=== PATIENT | female | born 1950 | race Caucasian/White ===

== ENCOUNTER → 2020-12-06 17:11 | Outpatient (CLI) | payer MEDICARE, SELFPAY ==
[2020-12-06 18:25] LABS: Basophils # 0.1 K/mm3 (0-0.2); Basophils % 1.1 % (0.1-2.0); Eosinophils # 0.2 K/mm3 (0.0-0.4); Eosinophils % 2.6 % (0.1-12.0); Hematocrit 43.9 % (37.0-47.0); Hemoglobin 13.9 g/dL (12.2-16.2); Lymphocytes # 2.2 K/mm3 (0.7-4.5); Lymphocytes % 26.8 % (10-50); Mean Corpuscular HGB Conc 31.7 g/dL (31.8-35.4); Mean Corpuscular Hemoglobin 31.7 pg (27.0-31.2); Mean Corpuscular Volume 99.8 fl (81-99); Mean Platelet Volume 9.7 fl (7.4-10.4); Monocytes # 0.5 K/mm3 (0.1-1.0); Monocytes % 6.3 % (1.7-9.3); Neutrophils # 5.3 K/mm3 (1.8-7.8); Neutrophils % 63.2 % (37.0-80.0); Platelet Count 492 K/mm3 (142-424); Red Blood Count 4.39 M/mm3 (4.20-5.40); Red Cell Distribution Width 13.9 % (11.5-17.5); White Blood Count 8.4 K/mm3 (4.8-10.8)
[2020-12-06 18:34] LABS: Alanine Aminotransferase 22 U/L (12-78); Albumin Level 4.3 g/dl (3.5-5.0); Albumin/Globulin Ratio 1.3 (1.1-1.8); Alkaline Phosphatase 152 U/L (38-126); Anion Gap 15.8 mEq/L (5-15); Aspartate Amino Transferase 40 U/L (14-36); Bilirubin,Total 0.7 mg/dl (0.2-1.3); Blood Urea Nitrogen 13 mg/dl (7-17); Calcium 10.1 mg/dl (8.4-10.2); Carbon Dioxide 27 mmol/L (22.0-30.0); Chloride 104 mmol/L (98-107); Chol/HDL Ratio 3.3 (1-3.5); Cholesterol 213 mg/dl (140-200); Estimated Glomerular Filt Rate 71 ml/min (>60); GFR (African American) 85 ML/MIN (>60); Globulin 3.2 g/dL (1.3-3.2); Glucose 99 mg/dl (74-100); HDL Cholesterol 65 mg/dl (40-60); Potassium 4.8 mmoL/L (3.5-5.1); Sodium 142 mmol/L (136-145); Total Protein,Serum 7.5 g/dl (6.3-8.2); Triglycerides 102 mg/dl (30-150); VLDL Cholesterol 20 mg/dL (0-40)
[2020-12-06 18:45] LABS: Direct LDL Cholesterol 114.01 mg/dL (100-129)
[2020-12-06 18:50] LABS: Free T4 (Free Thyroxine) 0.98 ng/dl (0.78-2.19)
[2020-12-06 18:51] LABS: 25-OH Vitamin D, Total 58.8 ng/mL (30-100)
[2020-12-06 19:07] LABS: Thyroid Stimulating Hormone 0.85 uIU/mL (0.465-4.68)
[2020-12-06 19:25] LABS: Vitamin B12 243 pg/mL (239-931)
[2020-12-06 19:29] LABS: Erythrocyte Sedimentation Rate 29 mm/hr (0-30)
== END ==
PROVIDERS: Visit Provider Emergency Medicine
DX: R53.83 Other fatigue (principal); E55.9 Vitamin D deficiency, unspecified; E78.5 Hyperlipidemia, unspecified
CPT/HCPCS: 80053; 80061; 82306; 82607; 84439; 84443; 85025; 85651

== ENCOUNTER → 2020-12-15 13:06 | Outpatient (CLI) | payer MEDICARE, SELFPAY ==
[2020-12-15 13:27] LABS: Basophils # 0.1 K/mm3 (0-0.2); Basophils % 1.2 % (0.1-2.0); Eosinophils # 0.2 K/mm3 (0.0-0.4); Eosinophils % 3.3 % (0.1-12.0); Hematocrit 41.3 % (37.0-47.0); Hemoglobin 13.8 g/dL (12.2-16.2); Lymphocytes # 2.4 K/mm3 (0.7-4.5); Lymphocytes % 34.4 % (10-50); Mean Corpuscular HGB Conc 33.4 g/dL (31.8-35.4); Mean Corpuscular Volume 98.8 fl (81-99); Mean Platelet Volume 8.7 fl (7.4-10.4); Monocytes # 0.4 K/mm3 (0.1-1.0); Monocytes % 6.1 % (1.7-9.3); Neutrophils # 3.8 K/mm3 (1.8-7.8); Platelet Count 469 K/mm3 (142-424); Red Blood Count 4.18 M/mm3 (4.20-5.40); Red Cell Distribution Width 13.6 % (11.5-17.5); White Blood Count 6.9 K/mm3 (4.8-10.8)
[2020-12-15 15:23] LABS: Vitamin B12 249 pg/mL (239-931)
[2020-12-15 15:24] LABS: Folate 7.82 ng/mL
[2020-12-16 05:09] LABS: Hep A Ab, IgM Positive (Negative); Hepatitis B Core Antibody IgM Negative (Negative); Hepatitis B Surface Antigen Negative (Negative); Hepatitis C Antibody <0.1 s/co ratio (0.0-0.9)
[2020-12-17 13:09] LABS: Peripheral Smear Review Scanned Result
== END ==
PROVIDERS: Visit Provider Emergency Medicine
DX: R79.9 Abnormal finding of blood chemistry, unspecified (principal); R53.83 Other fatigue
CPT/HCPCS: 36415; 80074; 82607; 82746; 85025

== ENCOUNTER → 2021-02-14 10:34 | Outpatient (CLI) | payer MEDICARE, SELFPAY ==
--- NOTE | 2021-02-14 10:34 | NM_ITS ---
APPROVED REPORT Exam: Nuclear Stress Test Indication: Chest pain, SOB, Syncope, Fatigue, HTN Patient Location: Outpatient [place] Tech:SHANELL Martinez, RT (R)(N) Ht: 5 ft 7 in Wt: 272 lbs Bra Size: DDD BSA: 2.30 m2 BMI: 42.5 History: Chest pain, SOB, Syncope, Fatigue, HTN Procedure: Stress test was not performed due to patient being in Rapid Afib. Cardiac Stress and Resting SPECT Images: Cardiac Stress and Resting SPECT images were obtained using technetium 99m Myoview mCi stress and 10.99 mCi at rest. Only resting images were performed. Stress portion was not completed due to patient being in Rapid Afib. Conclusion: incomplete test, Electronically signed by : Bernard Whatley MD 02/14/2021 19:15:31
--- NOTE | 2021-02-14 12:01 | CA_ITS ---
APPROVED REPORT EXAM: Comprehensive 2D, Doppler, and color-flow Echocardiogram Senior Manager Creative Services: Odette Arana RDCS Ht: 5 ft 7 in Wt: 272lbs BSA: 2.30 BP: 140/82 mmHg Indications: SOA,SVT,?GEORGES,TDS BODY HABITUS M-Mode Dimensions RVDd 2.46 cm (0.9-2.6) LA Diam 5.15 cm (1.9-4.0) LVDd 6.23 cm (3.5-5.7) Ao Diam 3.07 cm (2.0-3.7) LVDs 5.62 cm (3.5-5.7) IVSd 0.87 cm (0.6-1.1) PWd 0.85 cm (0.6-1.1) EF (Teich) 21.00% FS 9.80% EDV (Teich) 196.10 mL ESV (Teich) 154.90 mL Tricuspid Valve TR P. Velocity 367.00 cm/s Left Ventricle Left atrium is moderately enlarged, left ventricle is mildly dilated, severe reduced left ventricular systolic function, visually estimated ejection fraction 25 to 30%, left ventricle is globally hypokinetic, there is abnormal septal motion, there is echodensity seen in the left ventricular apex this likely represents a left ventricular apical thrombus. Repeat study with Definity contrast is recommended to confirm this finding. Diastolic parameters are inconclusive. Right Ventricle Right atrium and right ventricle are normal size and contractility. Aortic Valve Aortic valve is minimally thickened and fibrosed, there is no aortic stenosis or aortic insufficiency. Mitral Valve Mitral valve leaflets are minimally thickened, there is moderate mitral regurgitation. Tricuspid Valve Tricuspid valve grossly normal, there is mild tricuspid regurgitation, tricuspid regurgitation jet velocity is inadequate for calculation of the right ventricular systolic pressure. Pulmonic Valve Pulmonic valve is poorly visualized. Great Vessels Aortic root is normal size. Inferior vena cava is dilated without significant inspiratory collapse. Pericardium No significant pericardial effusion noted. Conclusion 1. Moderately enlarged left atrium, dilated left ventricle, severely reduced left ventricular systolic function, visually estimated ejection fraction 25 to 30%, left ventricle is globally hypokinetic there is apical mural thrombus present, repeat study with Definity contrast is recommended to confirm this finding. 2. Moderate mitral and mild tricuspid regurgitation. 3. No significant pericardial effusion noted 4. Inferior vena cava is dilated without significant inspiratory collapse. Electronically signed by : Bernard Whatley MD 02/14/2021 21:18:13
--- NOTE | 2021-02-14 13:20 | HMH.ITSHM ---
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 []VITAMIN D3 DULOXETINE BUPROPION CARVEDILOL AMLODIPINE LOSARTAN FAMOTIDINE AMITRIPTYLINE
== END ==
PROVIDERS: PCP Emergency Medicine; Visit Provider Emergency Medicine
DX: R06.02 Shortness of breath (principal)
CPT/HCPCS: 78451; 93306; A9502

== ENCOUNTER 2021-02-14 12:57 | Inpatient (IN) | payer MEDICARE, SELFPAY ==
[2021-02-14] VITALS (18 sets, daily range): BP systolic 98–171; BP diastolic 68–134; PULSE 77–149; RESP 18–24; TEMP 36.8–37.4; O2SAT 89–97; BMI 42.5
--- NOTE | 2021-02-14 12:37 | ECG_ITS ---
APPROVED REPORT Exam: Resting ECG HR:144 bpm ECG Measurements Heart Rate 144 AXES QRSd 156 QRS 90 QT 360 T -49 QTc 557 Conclusion Atrial fibrillation with rapid ventricular response with premature ventricular or aberrantly conducted complexes Rightward axis Nonspecific intraventricular block Abnormal ECG Electronically signed by : Anam Martinez MD 02/15/2021 20:25:34
--- NOTE | 2021-02-14 13:03 | XR_ITS ---
PROCEDURE: XR CHEST PORTABLE CLINICAL HISTORY: cough COMPARISON: No exams were available for comparison FINDINGS: There is mild cardiomegaly. Pulmonary vessels do not appear engorged. Prominent bronchovascular markings. There are low lung volumes which could in part contribute to this finding. There are no previous exams available for comparison. No lobar consolidation or collapse is evident. The distal aspect of the right clavicle is missing and may be due to surgical defect. No acute bony abnormalities. IMPRESSION: Cardiomegaly with low lung volumes and prominence of the bronchovascular markings nonspecific in part could be related to the low lung volumes. Interstitial pneumonitis is also consideration. Dictated by: Surya Fish MD 02/14/2021 13:57 Surya Fish MD in [place] 02/14/2021 13:57
--- NOTE | 2021-02-14 13:17 | HMH.EDSOB ---
ED Disposition Clinical Impression: Atrial fibrillation Qualifiers: Atrial fibrillation type: unspecified Qualified Code(s): I48.91 - Unspecified atrial fibrillation Disposition: Admitted As Inpatient Condition on Discharge: Fair - Critical Care Critical Care Time: No Attestation: On , the high probability of a clinically significant, sudden or life threatening deterioration of the following system(s) required my full and direct attention, intervention and personal management. The time I documented below is in addition to time spent performing reported procedures but includes the following listed in this critical care notation. Medical Decision Making - Medical Records Medical records reviewed: Yes: I reviewed the patient's medical records. - Ramin Inquiry Pt receiving controlled substance: No Vital Signs: 02/14/21 12:58 02/14/21 12:59 02/14/21 13:19 Temperature 99.4 F Temperature Source Oral Pulse Rate 111 H Pulse Rate [Left Radial] 149 H Respiratory Rate 22 21 Blood Pressure 130/88 Blood Pressure [Right Arm] 151/114 H Blood Pressure Mean 102 Blood Pressure Mean [Right Arm] 126 Blood Pressure Source [Right Arm] Automatic Cuff Blood Pressure Position [Right Arm] Sitting 02 Sat by Pulse Oximetry 89 L 93 L Oxygen Delivery Method Room Air Nasal Cannula Oxygen Flow Rate (LPM) 2 02/14/21 13:30 02/14/21 14:00 02/14/21 14:31 Temperature Temperature Source Pulse Rate 132 H 117 H 92 H Pulse Rate [Left Radial] Respiratory Rate 21 20 22 Blood Pressure 117/88 139/84 141/90 H Blood Pressure [Right Arm] Blood Pressure Mean 101 102 97 Blood Pressure Mean [Right Arm] Blood Pressure Source [Right Arm] Blood Pressure Position [Right Arm] 02 Sat by Pulse Oximetry 97 97 95 Oxygen Delivery Method Oxygen Flow Rate (LPM) 02/14/21 15:00 02/14/21 15:59 02/14/21 16:12 Temperature Temperature Source Pulse Rate 99 H 113 H 107 H Pulse Rate [Left Radial] Respiratory Rate 21 24 24 Blood Pressure 142/115 H 161/101 H 171/134 H Blood Pressure [Right Arm] Blood Pressure Mean 122 115 146 Blood Pressure Mean [Right Arm] Blood Pressure Source [Right Arm] Blood Pressure Position [Right Arm] 02 Sat by Pulse Oximetry 95 94 L 94 L Oxygen Delivery Method Oxygen Flow Rate (LPM) 02/14/21 16:31 02/14/21 17:00 02/14/21 17:31 Temperature Temperature Source Pulse Rate 86 103 H Pulse Rate [Left Radial] Respiratory Rate 20 21 23 Blood Pressure 139/76 142/74 H 131/83 Blood Pressure [Right Arm] Blood Pressure Mean 97 96 94 Blood Pressure Mean [Right Arm] Blood Pressure Source [Right Arm] Blood Pressure Position [Right Arm] 02 Sat by Pulse Oximetry 94 L 93 L Oxygen Delivery Method Oxygen Flow Rate (LPM) 02/14/21 18:00 02/14/21 18:30 02/14/21 18:48 Temperature 99.4 F Temperature Source Pulse Rate 86 Pulse Rate [Left Radial] Respiratory Rate 22 23 23 Blood Pressure 144/82 H 153/97 H 153/97 H Blood Pressure [Right Arm] Blood Pressure Mean 102 112 Blood Pressure Mean [Right Arm] Blood Pressure Source [Right Arm] Blood Pressure Position [Right Arm] 02 Sat by Pulse Oximetry Oxygen Delivery Method Nasal Cannula Oxygen Flow Rate (LPM) 3 - Lab Data Lab Results 02/14/21 12:58: SARS-CoV-2 (PCR) Not detected, Influenza A Untype (PCR) Not detected, Influenza Type B (PCR) Not detected 02/14/21 13:27: WBC 8.2, RBC 4.23, Hgb 13.3, Hct 39.5, MCV 93.6, MCH 31.5 H, MCHC 33.7, RDW 13.8, Plt Count 473 H, MPV 7.6, Neut % (Auto) 61.2, Lymph % (Auto) 29.0, Dickens % (Auto) 7.0, Eos % (Auto) 1.9, Baso % (Auto) 1.0, Neut # (Auto) 5.0, Lymph # (Auto) 2.4, Dickens # (Auto) 0.6, Eos # (Auto) 0.2, Baso # (Auto) 0.1 02/14/21 13:27: PT 11.1, INR 0.98, APTT 26.8 02/14/21 13:27: Sodium 140, Potassium 4.1, Chloride 108 H, Carbon Dioxide 21 L, Anion Gap 15.1 H, BUN 13, Creatinine 0.80, Estimated Creat Clear 49, Estimated
[2021-02-14 13:24] LABS: Coronavirus 19, PCR Not Detected (NotDetected); Influenza A, PCR Not Detected (NotDetected); Influenza B, PCR Not Detected (NotDetected)
[2021-02-14 13:48] LABS: Chloride 108 mmol/L (98-107); Potassium 4.1 mmoL/L (3.5-5.1); Sodium 140 mmol/L (136-145)
[2021-02-14 13:50] LABS: Blood Urea Nitrogen 13 mg/dl (7-17); Creatinine Clearance Estimated 49 mL/min (50-200); Estimated Glomerular Filt Rate 71 ml/min (>60); GFR (African American) 85 ML/MIN (>60)
[2021-02-14 13:51] LABS: Alanine Aminotransferase 25 U/L (12-78); Albumin Level 4.2 g/dl (3.5-5.0); Albumin/Globulin Ratio 1.4 (1.1-1.8); Alkaline Phosphatase 165 U/L (38-126); Anion Gap 15.1 mEq/L (5-15); Aspartate Amino Transferase 41 U/L (14-36); Bilirubin,Total 0.9 mg/dl (0.2-1.3); Calcium 9.9 mg/dl (8.4-10.2); Carbon Dioxide 21 mmol/L (22.0-30.0); Glucose 107 mg/dl (74-100); Total Protein,Serum 7.2 g/dl (6.3-8.2)
[2021-02-14 13:54] LABS: Basophils # 0.1 K/mm3 (0-0.2); Eosinophils # 0.2 K/mm3 (0.0-0.4); Eosinophils % 1.9 % (0.1-12.0); Hematocrit 39.5 % (37.0-47.0); Hemoglobin 13.3 g/dL (12.2-16.2); Lymphocytes # 2.4 K/mm3 (0.7-4.5); Mean Corpuscular HGB Conc 33.7 g/dL (31.8-35.4); Mean Corpuscular Hemoglobin 31.5 pg (27.0-31.2); Mean Corpuscular Volume 93.6 fl (81-99); Mean Platelet Volume 7.6 fl (7.4-10.4); Monocytes # 0.6 K/mm3 (0.1-1.0); Neutrophils % 61.2 % (37.0-80.0); Platelet Count 473 K/mm3 (142-424); Red Blood Count 4.23 M/mm3 (4.20-5.40); Red Cell Distribution Width 13.8 % (11.5-17.5); White Blood Count 8.2 K/mm3 (4.8-10.8)
[2021-02-14 13:59] LABS: Activated Partial Thrombo Time 26.8 seconds (22.8-30.6); INR 0.98 (0.9-1.1); NT Pro Brain Natriuretic Pep. 1340 pg/mL (0-125); Prothrombin Time 11.1 seconds (10.1-12.5)
[2021-02-14 14:09] LABS: Troponin I < 0.01 ng/ml (0.00-0.034)
--- NOTE | 2021-02-14 14:41 | CT_ITS ---
PROCEDURE INFORMATION: Exam: CTA Chest With Contrast Exam date and time: 02/14/2021 2:41 PM Age: 70 years old Clinical indication: Shortness of breath; Additional info: Short of breath TECHNIQUE: Imaging protocol: Computed tomographic angiography of the chest with contrast. 3D rendering (Not supervised by radiologist): MIP and/or 3D reconstructed images were created by the technologist. Radiation optimization: All CT scans at this facility use at least one of these dose optimization techniques: automated exposure control; mA and/or kV adjustment per patient size (includes targeted exams where dose is matched to clinical indication); or iterative reconstruction. Contrast material: ISOVUE 370; Contrast volume: 70 ml; Contrast route: INTRAVENOUS (IV); COMPARISON: CR XR CHEST PORTABLE 02/14/2021 1:13 PM FINDINGS: Pulmonary arteries: No evidence of pulmonary embolus to the segmental level. Aorta: Unremarkable. No aortic aneurysm. No aortic dissection. Lungs: Bilateral dependent atelectasis noted. Some subtle scattered tree-in-bud type and nodular opacities are seen. Interstitial prominence noted. Pleural spaces: Unremarkable. No pneumothorax. No pleural effusion. Heart: Mild cardiac enlargement. Coronary artery calcifications noted. Lymph nodes: Mild mediastinal adenopathy. Liver: Hypoattenuation of the liver probably due to steatosis. Gallbladder and bile ducts: Status post cholecystectomy. Bones/joints: Unremarkable. No acute fracture. Soft tissues: Unremarkable. Other findings: Small bilateral layering effusions. IMPRESSION: 1. No evidence of pulmonary embolus. 2. Tree-in-bud and tiny nodular opacities are worrisome for infection. However, clinical correlation is recommended. 3. Small bilateral effusions and mild mediastinal adenopathy may be related. 4. Mild hepatic steatosis .
[2021-02-14 15:01] LABS: Thyroid Stimulating Hormone 1.13 uIU/mL (0.465-4.68)
--- NOTE | 2021-02-14 15:04 | PC.NURSE ---
pt going to CT
--- NOTE | 2021-02-14 16:11 | PC.NURSE ---
pt to CT
--- NOTE | 2021-02-14 17:52 | PC.NURSE ---
ARISTIDES MARTINEZ speaking with Dr. Martinez who is ribbon weaver for Dr. Sullivan
--- NOTE | 2021-02-14 17:53 | PC.NURSE ---
notified melt house supervisor of admission
[2021-02-14 18:31] LABS: Troponin I < 0.01 ng/ml (0.00-0.034)
--- NOTE | 2021-02-14 18:37 | PC.NURSE ---
Report called to Maria Elena PÉREZ
--- NOTE | 2021-02-14 18:50 | PC.NURSE ---
pt arrived to room 218 from ED via wheelchair. Pt brought a pill set with her home meds. It is locked in the med drawer.
[2021-02-14 20:51] LABS: Troponin I < 0.01 ng/ml (0.00-0.034)
[2021-02-15] VITALS (24 sets, daily range): BP systolic 90–140; BP diastolic 40–92; PULSE 70–116; RESP 16–22; TEMP 36.7–37.1; O2SAT 3–95; BMI 42.7
--- NOTE | 2021-02-15 | IR_ITS ---
APPROVED REPORT Patient Location: Inpatient In Store Marketer: SHANELL Huntley RT (R) PROCEDURES Selective coronary angiogram INDICATION New onset systolic congestive heart failure ejection fraction 20% Informed consent was obtained prior to the procedure. COMPLICATIONS None Estimated Blood Loss: Less than 10 mls TECHNIQUE One percent lidocaine used to anesthetize the right anterior aspect of the wrist. The right radial artery was accessed via the Seldinger technique. A 6 Mongolian sheath was placed in the right radial artery. 2.5 mg of verapamil, 800 mcg of nitroglycerin, 1mg Lidocaine and 5000 U Heparin were given through the arterial sheath. The trap catheter was also used to perform selective coronary angiogram. At the end of the procedure the sheath was removed good hemostasis was achieved using Traclet band, patient was transferred to the postop holding area in stable condition. ANGIOGRAPHIC RESULTS The left main artery Normal The left anterior descending artery Normal The circumflex artery Dominant normal The right coronary artery Vestigial normal The BAILEY ventriculogram reveals Not performed today apical thrombus The left ventricular end-diastolic pressure Not measured due to apical thrombus IMPRESSION Normal coronary arteries Known severe systolic dysfunction based on echocardiogram with presence of apical thrombus PLAN 1. Patient should be fully anticoagulated and then placed on Coumadin with a goal INR between 2.5 and 3.5 2. Standard therapy for systolic heart failure 3. Placement of LifeVest Electronically signed by : Tony Easton MD 02/15/2021 13:41:50
--- NOTE | 2021-02-15 00:20 | PC.NURSE ---
HR sustaining in the 60-70s, afib. Michelle gave order to stop cardizem gtt and give 20mg PO cardizem.
--- NOTE | 2021-02-15 07:09 | P.CONPHA_ITS ---
[facility] Pharmacy VTE Monitoring - Patient Demographics Admission date: 02/14/21 Report Date: 02/15/21 Time: 07:09 Allergies/Adverse Reactions: Patient Allergies Sulfa (Sulfonamide Antibiotics) Allergy (Severe, Verified 02/07/21 10:51) blisters Height: 1.7 m Weight: 123.377 kg Patient Problems: Current Active Problems Atrial fibrillation (Acute) - VTE Risk Labs: VTE Related Lab Results Hgb 13.3 g/dL (12.2-16.2) 02/14/21 13:27 Hct 39.5 % (37.0-47.0) 02/14/21 13:27 Plt Count 473 K/mm3 (142-424) H 02/14/21 13:27 PT 11.1 seconds (10.1-12.5) 02/14/21 13:27 INR 0.98 (0.9-1.1) 02/14/21 13:27 APTT 26.8 seconds (22.8-30.6) 02/14/21 13:27 BUN 13 mg/dl (7-17) 02/14/21 13:27 Creatinine 0.80 mg/dl (0.52-1.04) 02/14/21 13:27 Estimated Creat Clear 49 mL/min (50-200) 02/14/21 13:27 VTE Score: 3 VTE Risk Level: Low Risk - Prophylaxis VTE Prophylaxis Ordered?: Yes Types of VTE Prophylaxis: TEDS Knee High, Pharmacological Location of Applied Device: Bilateral Lower Extremeties Pharmacologic Type: Enoxaparin
[2021-02-15 07:26] LABS: Basophils # 0.1 K/mm3 (0-0.2); Basophils % 0.8 % (0.1-2.0); Chloride 106 mmol/L (98-107); Eosinophils # 0.2 K/mm3 (0.0-0.4); Eosinophils % 2.7 % (0.1-12.0); Hematocrit 36.8 % (37.0-47.0); Hemoglobin 12.6 g/dL (12.2-16.2); Lymphocytes # 2.2 K/mm3 (0.7-4.5); Lymphocytes % 28.6 % (10-50); Mean Corpuscular HGB Conc 34.2 g/dL (31.8-35.4); Mean Corpuscular Hemoglobin 31.9 pg (27.0-31.2); Mean Corpuscular Volume 93.3 fl (81-99); Mean Platelet Volume 8.1 fl (7.4-10.4); Monocytes # 0.6 K/mm3 (0.1-1.0); Monocytes % 8.3 % (1.7-9.3); Neutrophils # 4.5 K/mm3 (1.8-7.8); Neutrophils % 59.6 % (37.0-80.0); Platelet Count 446 K/mm3 (142-424); Potassium 3.7 mmoL/L (3.5-5.1); Red Blood Count 3.95 M/mm3 (4.20-5.40); Red Cell Distribution Width 13.9 % (11.5-17.5); Sodium 141 mmol/L (136-145); White Blood Count 7.6 K/mm3 (4.8-10.8)
[2021-02-15 07:29] LABS: Anion Gap 12.7 mEq/L (5-15); Blood Urea Nitrogen 13 mg/dl (7-17); Carbon Dioxide 26 mmol/L (22.0-30.0); Creatinine Clearance Estimated 48 mL/min (50-200); Estimated Glomerular Filt Rate 71 ml/min (>60); GFR (African American) 85 ML/MIN (>60)
[2021-02-15 07:30] LABS: Calcium 9.6 mg/dl (8.4-10.2); Glucose 97 mg/dl (74-100)
--- NOTE | 2021-02-15 07:40 | HMH.PHAINT ---
MEDICATION RECONCILIATION COMPLETED ON PATIENT USING EXTERNAL FILL HISTORY FROM PHARMACY. -RAYMUNDO KUMAR, FLORYD
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
--- NOTE | 2021-02-15 12:21 | PC.NURSE ---
pt going to catheterization laboratory technician
[2021-02-15 14:46] LABS: INR 1.04 (0.9-1.1); Prothrombin Time 11.7 seconds (10.1-12.5)
[2021-02-16] VITALS (9 sets, daily range): BP systolic 103–148; BP diastolic 46–77; PULSE 60–90; RESP 15–26; TEMP 36.6–36.8; O2SAT 93–94; BMI 42.8
--- NOTE | 2021-02-16 04:15 | PC.NURSE ---
No acute changes overnight. Pt has slept well. No complaints stated. She remains afib on telemetry. VSS. She is currently on 3L O2 NC. No other concerns at this time. Will continue to monitor.
[2021-02-16 06:25] LABS: Basophils % 0.6 % (0.1-2.0); Eosinophils # 0.2 K/mm3 (0.0-0.4); Eosinophils % 3.2 % (0.1-12.0); Lymphocytes # 2.1 K/mm3 (0.7-4.5); Lymphocytes % 30.3 % (10-50); Mean Corpuscular HGB Conc 32.5 g/dL (31.8-35.4); Mean Corpuscular Hemoglobin 31.6 pg (27.0-31.2); Mean Corpuscular Volume 97.4 fl (81-99); Mean Platelet Volume 7.8 fl (7.4-10.4); Monocytes # 0.5 K/mm3 (0.1-1.0); Monocytes % 7.3 % (1.7-9.3); Neutrophils # 4.1 K/mm3 (1.8-7.8); Neutrophils % 58.7 % (37.0-80.0); Platelet Count 442 K/mm3 (142-424); White Blood Count 6.9 K/mm3 (4.8-10.8)
[2021-02-16 06:30] LABS: INR 1.01 (0.9-1.1); Prothrombin Time 11.4 seconds (10.1-12.5)
[2021-02-16 07:08] LABS: Chloride 105 mmol/L (98-107)
[2021-02-16 07:09] LABS: Potassium 3.8 mmoL/L (3.5-5.1); Sodium 138 mmol/L (136-145)
[2021-02-16 07:11] LABS: Blood Urea Nitrogen 15 mg/dl (7-17); Creatinine Clearance Estimated 48 mL/min (50-200); Estimated Glomerular Filt Rate 62 ml/min (>60); GFR (African American) 74 ML/MIN (>60)
[2021-02-16 07:12] LABS: Anion Gap 11.8 mEq/L (5-15); Calcium 9.2 mg/dl (8.4-10.2); Carbon Dioxide 25 mmol/L (22.0-30.0); Glucose 103 mg/dl (74-100)
--- NOTE | 2021-02-16 09:26 | HMH.ACPN2 ---
Internal Medicine - PN: Subj *Date: 02/16/21 *Time: 08:20 Interval history: pt laying in bed states she is doing well Exam Vital signs and Labs for Last 24 Hours: Temp Pulse Resp BP Pulse Ox 98.2 F 86 26 H 148/77 H 94 L 02/16/21 07:22 02/16/21 07:22 02/16/21 07:22 02/16/21 07:22 02/16/21 07:22 Laboratory Results - last 24 hr 02/15/21 14:20: PT 11.7, INR 1.04 02/16/21 05:53: WBC 6.9, RBC 3.80 L, Hgb 12.0 L, Hct 37.0, MCV 97.4, MCH 31.6 H, MCHC 32.5, RDW 14.0, Plt Count 442 H, MPV 7.8, Neut % (Auto) 58.7, Lymph % (Auto) 30.3, [place] % (Auto) 7.3, Eos % (Auto) 3.2, Baso % (Auto) 0.6, Neut # (Auto) 4.1, Lymph # (Auto) 2.1, [place] # (Auto) 0.5, Eos # (Auto) 0.2, Baso # (Auto) 0.0 02/16/21 05:53: Sodium 138, Potassium 3.8, Chloride 105, Carbon Dioxide 25, Anion Gap 11.8, BUN 15, Creatinine 0.90, Estimated Creat Clear 48, Estimated GFR 62, Est GFR ( Amer) 74, Glucose 103 H, Calcium 9.2 02/16/21 05:53: PT 11.4, INR 1.01 I & O for Last 24 hours: Intake & Output 02/13/21 02/14/21 02/15/21 02/16/21 11:59 11:59 11:59 11:59 Intake Total 800 / 800 950 / 950 Output Total 1999 / 1999 Balance -1200 / -1200 950 / 950 Weight 271 lb 15.995 oz 273 lb 1.6 oz - Constitutional no acute distress, obese - *Routine HEENT Exam Head: Present: normocephalic Eye: Present: PERRL ENT: Present: mucous membranes moist - *Routine Neck Exam Present: supple. Absent: lymphadenopathy - *Routine Respiratory Exam Present: CTA bilaterally - *Routine Cardiovascular Exam Present: irregular rhythm - *Routine Abdominal Exam Present: soft, normoactive bowel sounds. Absent: tenderness - *Routine Extremities Exam Absent: cyanosis, clubbing, edema - *Routine Skin Exam Present: warm. Absent: rash - *Routine Neurological Exam Present: alert, oriented X3 Assessment and Plan (1) Morbid obesity with BMI of 40.0-44.9, adult Status: Acute Category: Medical Code(s): E66.01 - Morbid (severe) obesity due to excess calories; Z68.41 - Body mass index [BMI] 40.0-44.9, adult (2) Atrial fibrillation Status: Acute Qualifiers: Atrial fibrillation type: unspecified Qualified Code(s): I48.91 - Unspecified atrial fibrillation Category: Medical Code(s): I48.91 - Unspecified atrial fibrillation (3) MONI (obstructive sleep apnea) Status: Acute Category: Medical Code(s): G47.33 - Obstructive sleep apnea (adult) (pediatric) (4) HTN (hypertension) Status: Acute Category: Medical Code(s): I10 - Essential (primary) hypertension (5) Ischemic cardiomyopathy Status: Acute Category: Medical Code(s): I25.5 - Ischemic cardiomyopathy - Assessment and plan all Dx Assessment and Plan for all problems:: rounded with dr waggoner all orders per dr waggoner Known severe systolic dysfunction based on echocardiogram with presence of apical thrombus PLAN 1. Patient should be fully anticoagulated and then placed on Coumadin with a goal INR between 2.5 and 3.5 2. Standard therapy for systolic heart failure 3. Placement of LifeVest
--- NOTE | 2021-02-16 10:28 | HMH.PNCARD ---
Subjective Date: 02/16/21 Time: 10:00 Principal diagnosis: systolic chf, apical thrombus Interval history: This is a 70-year-old white female who was presented to [facility] with new onset atrial fibrillation with RVR. The patient was here at the facility having a stress test and echocardiogram when her heart rate went into the 140s and was in atrial fibrillation. The patient is now rate controlled. She underwent left cardiac catheterization yesterday which showed normal coronary arteries with severe systolic dysfunction and based on the echocardiogram this also showed a presence of an apical thrombus. This morning she denies any chest pain or pressure. She denies any shortness of breath. She denies any fever, chills, nausea, vomiting, diarrhea, PND or orthopnea. The patient has been started on Coumadin and Lovenox for anticoagulation secondary to the apical thrombus. She is currently awaiting a LifeVest secondary to her severe LV dysfunction. Exam Vital signs and Labs for Last 24 Hours: Temp Pulse Resp BP Pulse Ox 98.2 F 75 26 H 148/77 H 94 L 02/16/21 07:22 02/16/21 10:14 02/16/21 07:22 02/16/21 07:22 02/16/21 07:22 Laboratory Results - last 24 hr 02/15/21 14:20: PT 11.7, INR 1.04 02/16/21 05:53: WBC 6.9, RBC 3.80 L, Hgb 12.0 L, Hct 37.0, MCV 97.4, MCH 31.6 H, MCHC 32.5, RDW 14.0, Plt Count 442 H, MPV 7.8, Neut % (Auto) 58.7, Lymph % (Auto) 30.3, [place] % (Auto) 7.3, Eos % (Auto) 3.2, Baso % (Auto) 0.6, Neut # (Auto) 4.1, Lymph # (Auto) 2.1, [place] # (Auto) 0.5, Eos # (Auto) 0.2, Baso # (Auto) 0.0 02/16/21 05:53: Sodium 138, Potassium 3.8, Chloride 105, Carbon Dioxide 25, Anion Gap 11.8, BUN 15, Creatinine 0.90, Estimated Creat Clear 48, Estimated GFR 62, Est GFR ( Amer) 74, Glucose 103 H, Calcium 9.2 02/16/21 05:53: PT 11.4, INR 1.01 I & O for Last 24 hours: Intake & Output 02/13/21 02/14/21 02/15/21 02/16/21 23:59 23:59 23:59 23:59 Intake Total 1270 / 1270 480 / 480 Output Total 1999 Balance -730 / -730 480 / 480 Weight 272 lb 271 lb 15.995 oz 273 lb 1.6 oz - Constitutional no acute distress, morbidly obese - *Routine HEENT Exam Head: Present: normocephalic, atraumatic Eye: Present: EOMI, PERRL ENT: Present: mucous membranes moist - *Routine Neck Exam Present: supple, full ROM, normal carotid upstroke. Absent: JVD, carotid bruit, lymphadenopathy - *Routine Respiratory Exam Present: CTA bilaterally - *Routine Cardiovascular Exam Present: Normal S1, Normal S2, murmur, irregularly irregular - *Routine Abdominal Exam Present: soft, normoactive bowel sounds. Absent: tenderness, distended - *Routine Extremities Exam Present: edema, full ROM, pulses intact, normal capillary refill. Absent: cyanosis, clubbing - *Routine Skin Exam Present: intact, warm. Absent: erythema, rash - *Routine Neurological Exam Present: alert, oriented X3, CN II-XII intact. Absent: sensory deficit, motor deficit Progress Note: A&P (1) Apical mural thrombus Status: Acute (2) Dilated cardiomyopathy Status: Acute (3) Atrial fibrillation Status: Acute (4) MONI (obstructive sleep apnea) Status: Acute (5) HTN (hypertension) Status: Acute (6) Morbid obesity with BMI of 40.0-44.9, adult Status: Acute Assessment and Plan for All Diagnoses:: Plan: 1. The patient was admitted to the hospital after being found to be in atrial fibrillation with RVR. The patient is on digoxin and carvedilol for rate control and tolerating this well. 2. The patient had an apical thrombus noted on echocardiogram. She has been started on warfarin for anticoagulation. The patient will be bridged with Lovenox until she is therapeutic between 2.[address] Easton would like for the patient to stay in the hospital until she is therapeutic on the Lovenox prior to discharge home. 3. She does have normal coronary arteries. 4. The patient does have severe LV dysfunction. Because she has
[2021-02-17] VITALS: BP 105/60; PULSE 70; PULSE 80; RESP 18; TEMP 36.9; O2SAT 96
[2021-02-17 04:00] VITALS: BP 102/61; PULSE 70; PULSE 86; RESP 14; TEMP 36.4; O2SAT 93
--- NOTE | 2021-02-17 04:05 | PC.NURSE ---
A&OX4. TOLERATING RA WELL. PT HAS LIFE VEST ON. UP INDEPENDENTLY IN ROOM. TOLERATING WELL. PT IS CONTROLLED AFIB WITH BBB ON TELE. HAS HAD NO C/O THUS FAR THIS SHIFT. HAS SLEPT MAJORITY OF NIGHT. VSS WILL CONTINUE TO MONITOR.
[2021-02-17 05:19] VITALS: BMI 43.3
[2021-02-17 08:00] VITALS: BP 124/67; PULSE 68; PULSE 74; RESP 18; TEMP 36.8; O2SAT 94
[2021-02-17 08:29] VITALS: PULSE 78
[2021-02-17 08:35] LABS: Basophils # 0.1 K/mm3 (0-0.2); Basophils % 1.4 % (0.1-2.0); Eosinophils # 0.2 K/mm3 (0.0-0.4); Eosinophils % 3.5 % (0.1-12.0); Hematocrit 40.1 % (37.0-47.0); Hemoglobin 12.9 g/dL (12.2-16.2); Lymphocytes # 1.8 K/mm3 (0.7-4.5); Lymphocytes % 32.1 % (10-50); Mean Corpuscular HGB Conc 32.2 g/dL (31.8-35.4); Mean Corpuscular Hemoglobin 31.3 pg (27.0-31.2); Mean Corpuscular Volume 97.3 fl (81-99); Mean Platelet Volume 8.6 fl (7.4-10.4); Monocytes # 0.4 K/mm3 (0.1-1.0); Monocytes % 7.2 % (1.7-9.3); Neutrophils # 3.1 K/mm3 (1.8-7.8); Neutrophils % 55.8 % (37.0-80.0); Platelet Count 435 K/mm3 (142-424); Red Blood Count 4.12 M/mm3 (4.20-5.40); Red Cell Distribution Width 13.9 % (11.5-17.5); White Blood Count 5.6 K/mm3 (4.8-10.8)
[2021-02-17 08:41] LABS: Chloride 107 mmol/L (98-107)
[2021-02-17 08:42] LABS: Potassium 4.2 mmoL/L (3.5-5.1); Sodium 139 mmol/L (136-145)
[2021-02-17 08:44] LABS: Blood Urea Nitrogen 13 mg/dl (7-17); Creatinine Clearance Estimated 48 mL/min (50-200); Estimated Glomerular Filt Rate 71 ml/min (>60); GFR (African American) 85 ML/MIN (>60); INR 1.08 (0.9-1.1); Prothrombin Time 12.1 seconds (10.1-12.5)
[2021-02-17 08:45] LABS: Anion Gap 11.2 mEq/L (5-15); Calcium 9.4 mg/dl (8.4-10.2); Carbon Dioxide 25 mmol/L (22.0-30.0); Chol/HDL Ratio 4.5 (1-3.5); Cholesterol 168 mg/dl (140-200); Glucose 102 mg/dl (74-100); HDL Cholesterol 37 mg/dl (40-60); Triglycerides 84 mg/dl (30-150); VLDL Cholesterol 17 mg/dL (0-40)
[2021-02-17 08:56] LABS: Direct LDL Cholesterol 95.72 mg/dL (100-129)
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
[2021-02-17 12:02] VITALS: PULSE 118
--- NOTE | 2021-02-17 12:25 | HMH.PHACLD ---
Sindhu Mckinnon has received discharge medication counseling on the following medications: -ENTRESTO -LOVENOX -WARFARIN -COREG
== END 2021-02-17 14:54 | disposition home or self-care (01) | DRG 287 ==
LOC: ER 17:43 → 2ND 02-15 07:28
PROVIDERS: Internal Medicine; Nurse Practitioner Family; Urology; Admitting Provider Internal Medicine Adolescent Medicine; Emergency Provider Emergency Medicine; PCP Emergency Medicine; Visit Provider Emergency Medicine
DX: I48.91 Unspecified atrial fibrillation (principal); I50.20 Unspecified systolic (congestive) heart failure; Z68.41 Body mass index [BMI] 40.0-44.9, adult; Z20.822 Contact with and (suspected) exposure to COVID-19; I51.3 Intracardiac thrombosis, not elsewhere classified; Z79.899 Other long term (current) drug therapy; I11.0 Hypertensive heart disease with heart failure; J45.909 Unspecified asthma, uncomplicated; M79.7 Fibromyalgia; E66.01 Morbid (severe) obesity due to excess calories; G47.33 Obstructive sleep apnea (adult) (pediatric); I42.0 Dilated cardiomyopathy
CPT/HCPCS: 36415; 71045; 71275; 78451; 80048; 80053; 80061; 83880; 84443; 84484; 85025; 85610; 85730; 93005; 93306; 93458; 96365; 96375; 96376; 99152; 99284; A9502; C1725; C1769; C9803; J1644; Q9967; U0003; U0005

== ENCOUNTER → 2021-02-20 08:47 | Outpatient (CLI) | payer MEDICARE, SELFPAY ==
[2021-02-20 09:17] LABS: Hematocrit 40.8 % (37.0-47.0); Hemoglobin 13.6 g/dL (12.2-16.2)
[2021-02-20 10:37] LABS: Blood Urea Nitrogen 13 mg/dl (7-17); Estimated Glomerular Filt Rate 71 ml/min (>60); GFR (African American) 85 ML/MIN (>60)
== END ==
PROVIDERS: Visit Provider Emergency Medicine
DX: Z51.81 Encounter for therapeutic drug level monitoring (principal); Z79.01 Long term (current) use of anticoagulants
CPT/HCPCS: 36415; 82565; 84520; 85014; 85018

== ENCOUNTER 2021-03-14 12:48 | Outpatient (CLI) | payer MEDICARE, SELFPAY ==
[2021-03-14 16:00] LABS: PHA INR Fingerstick 2.7 (0.9-1.1)
== END 2021-03-14 16:02 | disposition home or self-care (01) ==
LOC: ACC 12:49
PROVIDERS: PCP Emergency Medicine; Visit Provider Nurse Practitioner Family
DX: Z51.81 Encounter for therapeutic drug level monitoring (principal); Z79.01 Long term (current) use of anticoagulants
CPT/HCPCS: 85610; 99211; G0463

== ENCOUNTER 2021-04-02 12:46 | Outpatient (CLI) | payer MEDICARE, SELFPAY ==
--- NOTE | 2021-04-02 12:47 | CA_ITS ---
APPROVED REPORT EXAM: Comprehensive 2D, Doppler, and color-flow Echocardiogram Caddie Supervisor: Yomaira Rajput CRT Ht: 5 ft 7 in Wt: 267lbs BSA: 2.29 BP: 140/82 mmHg Indications: SOB, SVT,OBESITY Echo Enhancing Agent Indication: Rule out thrombus Agent(s) / Amount(s) Used: Definity 2 cc Conclusion 1. Limited echocardiogram was obtained using Definity contrast study to evaluate left ventricular systolic function. Visually estimated ejection fraction approximately 30%, there appears to be moderate hypokinesis involving mid to distal septum anterior apical wall, there is no left ventricular thrombus seen. 2. No significant pericardial effusion noted. Electronically signed by : Bernard Whatley MD 04/02/2021 17:45:46
--- NOTE | 2021-04-02 12:47 | CA_ITS ---
FINAL REPORT TECHNIQUE: Color Doppler, duplex Doppler and link scale sonography of the bilateral neck arterial vasculature was performed. Velocities were measured in the carotid arteries. Stenosis evaluation based on the validated velocity criteria. CLINICAL HISTORY: bruit, R ICA & L ICA <20 Bilateral thyroid cysts FINDINGS: The peak systolic velocity of the right common carotid artery is 116 cm/s. The peak systolic velocity of the right internal carotid artery is 71 cm/s and end diastolic velocity 26 cm/s. A small amount of plaque is present. The right external carotid artery is patent. The right vertebral artery is patent with antegrade flow. The peak systolic velocity of the left common carotid artery is 116 cm/s. The peak systolic velocity of the left internal carotid artery is 93 cm/s and end diastolic velocity 37 cm/s. A small amount of plaque is present. The left external carotid artery is patent.The left vertebral artery is patent with antegrade flow. IMPRESSION: Less than 50% bilateral carotid stenoses. Bilateral patent vertebral arteries with antegrade flow. If indicated, CTA or MRA could further evaluate. Reviewed, Interpreted and Dictated by Roberto Warner III, MD Transcribed by Reema James Authenticated by Roberto Warner III, MD on 04/02/2021 03:57:[address] [facility]
[2021-04-02 13:17] LABS: PHA INR Fingerstick 3.9 (0.9-1.1)
== END 2021-04-02 13:20 | disposition home or self-care (01) ==
LOC: RT 12:47
PROVIDERS: PCP Emergency Medicine; Visit Provider Nurse Practitioner Family
DX: I10 Essential (primary) hypertension (principal); I42.0 Dilated cardiomyopathy; I42.8 Other cardiomyopathies; I48.91 Unspecified atrial fibrillation; I51.3 Intracardiac thrombosis, not elsewhere classified; R09.89 Other specified symptoms and signs involving the circulatory and respiratory systems
CPT/HCPCS: 85610; 93308; 93880; 99211; G0463; Q9957

== ENCOUNTER → 2021-04-17 13:08 | Outpatient (CLI) | payer MEDICARE, SELFPAY ==
[2021-04-17 13:59] LABS: Basophils # 0.1 K/mm3 (0-0.2); Basophils % 1.3 % (0.1-2.0); Eosinophils # 0.1 K/mm3 (0.0-0.4); Eosinophils % 2.1 % (0.1-12.0); Hematocrit 42.3 % (37.0-47.0); Hemoglobin 13.6 g/dL (12.2-16.2); Lymphocytes # 1.9 K/mm3 (0.7-4.5); Lymphocytes % 27.9 % (10-50); Mean Corpuscular HGB Conc 32.1 g/dL (31.8-35.4); Mean Corpuscular Hemoglobin 31.6 pg (27.0-31.2); Mean Corpuscular Volume 98.6 fl (81-99); Mean Platelet Volume 7.6 fl (7.4-10.4); Monocytes # 0.3 K/mm3 (0.1-1.0); Monocytes % 4.9 % (1.7-9.3); Neutrophils # 4.3 K/mm3 (1.8-7.8); Neutrophils % 63.8 % (37.0-80.0); Platelet Count 434 K/mm3 (142-424); Red Blood Count 4.29 M/mm3 (4.20-5.40); Red Cell Distribution Width 14.8 % (11.5-17.5); White Blood Count 6.8 K/mm3 (4.8-10.8)
[2021-04-17 19:18] LABS: Anion Gap 12.8 mEq/L (5-15); Blood Urea Nitrogen 13 mg/dl (7-17); Calcium 9.7 mg/dl (8.4-10.2); Carbon Dioxide 25 mmol/L (22.0-30.0); Chloride 107 mmol/L (98-107); Estimated Glomerular Filt Rate 61 ml/min (>60); GFR (African American) 74 ML/MIN (>60); Glucose 142 mg/dl (74-100); Potassium 3.8 mmoL/L (3.5-5.1); Sodium 141 mmol/L (136-145)
== END ==
PROVIDERS: PCP Emergency Medicine; Visit Provider Physician Assistant
DX: E66.01 Morbid (severe) obesity due to excess calories (principal); G47.33 Obstructive sleep apnea (adult) (pediatric); I42.0 Dilated cardiomyopathy; I48.91 Unspecified atrial fibrillation; I50.20 Unspecified systolic (congestive) heart failure; I51.3 Intracardiac thrombosis, not elsewhere classified; R09.89 Other specified symptoms and signs involving the circulatory and respiratory systems; Z68.41 Body mass index [BMI] 40.0-44.9, adult; Z95.810 Presence of automatic (implantable) cardiac defibrillator; Z01.812 Encounter for preprocedural laboratory examination; Z11.52 Encounter for screening for COVID-19; I11.0 Hypertensive heart disease with heart failure
CPT/HCPCS: 36415; 80048; 85025; C9803; U0003; U0005

== ENCOUNTER 2021-04-25 07:51 | Day surgery (SDC) | payer MEDICARE, SELFPAY ==
[2021-04-25] VITALS (8 sets, daily range): BP systolic 128–189; BP diastolic 69–91; PULSE 70–85; RESP 15–19; O2SAT 95–100; BMI 41.6
--- NOTE | 2021-04-25 | IR_ITS ---
APPROVED REPORT Patient Location: Outpatient Amphibious Operations Officer: SHANELL Huntley RT (R) PROCEDURES 1. Pocket formation for biventricular pacemaker generator with cardiac resynchronization/defibrillator therapy. 2. Placement of atrial sensing and pacing lead into the right atrial appendage. 3. Placement of a right ventricular sensing, pacing and shocking lead in the right ventricular apex. 4. Placement of left ventricular sensing pacing lead via the coronary sinus. 5. Permanent cardiac resynchronization therapy with ICD implantation/biventricular pacemaker. INDICATION Systolic Congestive Heart Failure, ejection <35%, Wide QRS >120ms, [place] Heart Assoication Class 3 Congestive Heart Failure Informed consent was obtained prior to the procedure. COMPLICATIONS None Estimated Blood Loss: Less than 10 ML. TECHNIQUE 1% Lidocaine with epinephrine used to anesthetized the left anterior aspect of the chest. Scalpel was used to make the initial cutaneous incision while electrocautery was used to dissect down tinto the fascia. The fascia was lifted off the pectoralis muscle and digitally manipulated creating a pocket for the defibrillator. The patient was then placed in Trendelenburg position and the subclavian vein was accessed 3 times via the Selinger technique. A 8 Sammar[place] sheath was placed under fluoroscopic guidance into the subclavian vein. The dilator was removed from the sheath. Using fluoroscopic guidance, the ventricular lead was placed into the right ventricular apex, screwed and secured into place. Electronic interrogation proved acceptable thresholds and voltage within the lead. Using 3-0 silk, the ventricular lead was then secured into place and sheath peeled away. Following this, a 9.5 [place] sheath and dilator was then placed over one of the wires while keeping the other wire in place within the subclavian vein. The dilator was removed from the sheath. Using fluoroscopic guidance, contrast was used to visualize the coronary sinus, the left ventricular lead was placed into the coronary sinus. Electronic interrogation proved acceptable thresholds and voltage within the lead. Using 3-0 silk, the left ventricular lead was then secured into place and sheath peeled away.An additional 6 [place] fresh sheath and dilator was placed over the existing wire. Using fluoroscopic guidance, the atrial lead was then placed into the right atrial appendage and screwed and secured in place. Electrical interrogation demonstrated acceptable thresholds and voltage number. The atrial lead was then secured into place using 3-0 silk and sheath peeled away. 1 gram of Ancef was used to flush the pocket. All 3 leads were connected to generator and tested via computer. The defibrillator then secured to the fascia. Monocryl was used to close the subcutaneous layers while renay were used to close the cutaneous layer. A pressure dressing was placed and the patient was transferred to the postop holding area in stable condition for postoperative care. INTERROGATION Generator Model number: Vigilant X4 RIBBING MACHINE OPERATOR-D IS-1/DF4/IS4 G247 Generator Serial number: [id number] Atrial lead model number: Ingevity + IS-1 Bi Positive Fix RA/RV 52 cm 7841 Atrial lead serial number: [id number] P-wave: 1.0 mV Impedence: 450 Ohms Threshold: Afib Left Ventricular lead model number: Acuity X4 Straight LVA Quad Electrode IS4 Passive 86 cm 4671 Left Ventricular lead serial number: [id number] R-wave: 20.0 mV Impedence: 760 Ohms Threshold: 2.5V @ 0.4ms Current 3.3 mA Right Ventricular lead model number: [place] 4-Front Active Fix Dual Coil 59 cm 0675 Right Ventricular lead serial number: [id number] R-wave: 12.0 mV Imped
[2021-04-25 09:00] LABS: Chloride 102 mmol/L (98-107); Potassium 3.8 mmoL/L (3.5-5.1); Sodium 136 mmol/L (136-145)
[2021-04-25 09:02] LABS: Basophils # 0.1 K/mm3 (0-0.2); Basophils % 0.7 % (0.1-2.0); Coronavirus 19, PCR Not Detected (NotDetected); Eosinophils # 0.2 K/mm3 (0.0-0.4); Eosinophils % 2.1 % (0.1-12.0); Hematocrit 41.9 % (37.0-47.0); Hemoglobin 13.3 g/dL (12.2-16.2); Influenza A, PCR Not Detected (NotDetected); Influenza B, PCR Not Detected (NotDetected); Lymphocytes # 1.7 K/mm3 (0.7-4.5); Lymphocytes % 21.4 % (10-50); Mean Corpuscular HGB Conc 31.8 g/dL (31.8-35.4); Mean Corpuscular Hemoglobin 31.8 pg (27.0-31.2); Monocytes # 0.5 K/mm3 (0.1-1.0); Monocytes % 6.7 % (1.7-9.3); Neutrophils # 5.5 K/mm3 (1.8-7.8); Neutrophils % 69.1 % (37.0-80.0); Platelet Count 414 K/mm3 (142-424); Red Blood Count 4.19 M/mm3 (4.20-5.40); Red Cell Distribution Width 14.7 % (11.5-17.5)
[2021-04-25 09:03] LABS: Anion Gap 11.8 mEq/L (5-15); Blood Urea Nitrogen 11 mg/dl (7-17); Carbon Dioxide 26 mmol/L (22.0-30.0); Creatinine Clearance Estimated 49 mL/min (50-200); Estimated Glomerular Filt Rate 70 ml/min (>60); GFR (African American) 85 ML/MIN (>60)
[2021-04-25 09:04] LABS: Calcium 9.7 mg/dl (8.4-10.2); Glucose 106 mg/dl (74-100)
[2021-04-25 09:08] LABS: INR 0.96 (0.9-1.1); Prothrombin Time 10.9 seconds (10.1-12.5)
--- NOTE | 2021-04-25 12:12 | XR_ITS ---
FINAL REPORT CLINICAL HISTORY: post AICD COMPARISON: 02/14/2021 FINDINGS: SINGLE VIEW CHEST The heart is normal in size. The mediastinum is unremarkable. Left subclavian ICD is present. There is mild pulmonary vascular congestion. There is mild right base opacity, may represent atelectasis or scar. There is no pneumothorax. IMPRESSION: Right base atelectasis or scar. Reviewed, Interpreted and Dictated by Roberto Warner III, MD Transcribed by Rebeca Howard Authenticated by Roberto Warner III, MD on 04/25/2021 01:26:41 PM [facility]
== END 2021-04-25 13:56 | disposition home or self-care (01) ==
LOC: CATHLAB 07:53
PROVIDERS: PCP Emergency Medicine; Visit Provider Internal Medicine
DX: I50.21 Acute systolic (congestive) heart failure (principal); Z79.01 Long term (current) use of anticoagulants; I11.0 Hypertensive heart disease with heart failure; I48.91 Unspecified atrial fibrillation; E66.01 Morbid (severe) obesity due to excess calories; Z68.41 Body mass index [BMI] 40.0-44.9, adult; I42.0 Dilated cardiomyopathy; I51.3 Intracardiac thrombosis, not elsewhere classified; G47.33 Obstructive sleep apnea (adult) (pediatric); Z79.899 Other long term (current) drug therapy; Z20.822 Contact with and (suspected) exposure to COVID-19
CPT/HCPCS: 33249; 71045; 80048; 85025; 85610; C1769; C1882; C1895; C1898; C1900; C9803; Q9967; U0003; U0005

== ENCOUNTER 2021-05-01 11:50 | Emergency (ER) | payer MEDICARE, SELFPAY ==
[2021-05-01] VITALS (10 sets, daily range): BP systolic 131–153; BP diastolic 83–99; PULSE 81–97; RESP 14–23; TEMP 36.7; O2SAT 93–96; BMI 40.7
--- NOTE | 2021-05-01 11:47 | ECG_ITS ---
APPROVED REPORT Exam: Resting ECG HR:94 bpm ECG Measurements Heart Rate 94 AXES QRSd 151 QRS 111 QT 354 T 0 QTc 406 Conclusion ELECTRONIC VENTRICULAR PACEMAKER ABNORMAL RHYTHM ECG UNCONFIRMED REPORT Electronically signed by : Anam Martinez MD 05/02/2021 21:02:31
--- NOTE | 2021-05-01 12:06 | XR_ITS ---
FINAL REPORT CLINICAL HISTORY: soa, CHEST PAIN, DEFIBRILLATOR RECENTLY PLACED. COMPARISON: April 25, 2021 FINDINGS: Two views of the chest were obtained. There is a left subclavian ICD. Cardiomegaly is noted. The mediastinum is normal. There is pulmonary vascular congestion. There is worsening bibasilar atelectasis or pneumonia. There is no pneumothorax. The bony thorax is intact. IMPRESSION: Worsening bibasilar atelectasis or pneumonia. Reviewed, Interpreted and Dictated by Roberto Warner III, MD Transcribed by Jaylon Carmona Authenticated by Roberto Warner III, MD on 05/01/2021 01:15:51 PM [facility]
[2021-05-01 12:21] LABS: Chloride 104 mmol/L (98-107); Sodium 135 mmol/L (136-145)
[2021-05-01 12:22] LABS: Basophils # 0.1 K/mm3 (0-0.2); Basophils % 0.6 % (0.1-2.0); Eosinophils # 0.1 K/mm3 (0.0-0.4); Eosinophils % 1.6 % (0.1-12.0); Hematocrit 41.2 % (37.0-47.0); Hemoglobin 13.4 g/dL (12.2-16.2); Lymphocytes # 1.4 K/mm3 (0.7-4.5); Lymphocytes % 17.1 % (10-50); Mean Corpuscular HGB Conc 32.7 g/dL (31.8-35.4); Mean Corpuscular Hemoglobin 31.7 pg (27.0-31.2); Mean Corpuscular Volume 97.2 fl (81-99); Mean Platelet Volume 7.3 fl (7.4-10.4); Monocytes # 0.5 K/mm3 (0.1-1.0); Monocytes % 5.7 % (1.7-9.3); Neutrophils % 75.1 % (37.0-80.0); Platelet Count 329 K/mm3 (142-424); Potassium 3.7 mmoL/L (3.5-5.1); Red Blood Count 4.24 M/mm3 (4.20-5.40); Red Cell Distribution Width 14.6 % (11.5-17.5); White Blood Count 7.9 K/mm3 (4.8-10.8)
[2021-05-01 12:23] LABS: Blood Urea Nitrogen 12 mg/dl (7-17); Creatinine Clearance Estimated 93 mL/min (50-200); Estimated Glomerular Filt Rate 70 ml/min (>60); GFR (African American) 85 ML/MIN (>60)
[2021-05-01 12:24] LABS: Alanine Aminotransferase 23 U/L (12-78); Albumin Level 4.1 g/dl (3.5-5.0); Albumin/Globulin Ratio 1.3 (1.1-1.8); Alkaline Phosphatase 121 U/L (38-126); Anion Gap 7.7 mEq/L (5-15); Aspartate Amino Transferase 39 U/L (14-36); Bilirubin,Total 1.2 mg/dl (0.2-1.3); Calcium 8.8 mg/dl (8.4-10.2); Carbon Dioxide 27 mmol/L (22.0-30.0); Globulin 3.1 g/dL (1.3-3.2); Glucose 102 mg/dl (74-100); Total Protein,Serum 7.2 g/dl (6.3-8.2)
--- NOTE | 2021-05-01 12:25 | PC.NURSE ---
Radiology at bedside
--- NOTE | 2021-05-01 12:30 | PC.NURSE ---
Recheck from poison control, no change at this time
[2021-05-01 12:40] LABS: Troponin I < 0.01 ng/ml (0.00-0.034)
--- NOTE | 2021-05-01 12:53 | HMH.EDGENADL ---
ED Disposition Clinical Impression: Congestive heart failure Qualifiers: Heart failure type: unspecified Heart failure chronicity: acute on chronic Qualified Code(s): I50.9 - Heart failure, unspecified Disposition: Home, Self-Care Condition on Discharge: Good Instructions: DI for Heart Failure Additional Instructions: Take Lasix and Aldactone as prescribed. Follow-up with Dr. Easton in the office as instructed Friday at 11:30 AM. Return to the emergency department if worsening shortness of breath. Prescriptions: Spironolactone [Aldactone 25mg Tab] 25 mg PO DAILY #30 tab Transmission Status: Received by [id number] Furosemide [Lasix 40mg tab] 40 mg PO DAILY #30 tab Transmission Status: Received by [id number] Referrals: Jerson Sullivan MD [Primary Care Provider] - - Critical Care Critical Care Time: No Attestation: On 05/01/21, the high probability of a clinically significant, sudden or life threatening deterioration of the following system(s) required my full and direct attention, intervention and personal management. The time I documented below is in addition to time spent performing reported procedures but includes the following listed in this critical care notation. Medical Decision Making - Ramin Inquiry Pt receiving controlled substance: No Vital Signs: 05/01/21 11:51 05/01/21 12:19 05/01/21 14:08 Temperature 98.1 F Temperature Source Oral Pulse Rate 90 90 Pulse Rate [Left Radial] 95 H Respiratory Rate 14 23 Blood Pressure 138/90 142/92 H Blood Pressure [Right Arm] 138/95 H Blood Pressure Mean [Right Arm] 109 Blood Pressure Source [Right Arm] Automatic Cuff Blood Pressure Position [Right Arm] Sitting 02 Sat by Pulse Oximetry 93 L 93 L 95 Oxygen Delivery Method Room Air Nasal Cannula Nasal Cannula Oxygen Flow Rate (LPM) 2 2 - Lab Data Lab Results 05/01/21 11:50: WBC 7.9, RBC 4.24, Hgb 13.4, Hct 41.2, MCV 97.2, MCH 31.7 H, MCHC 32.7, RDW 14.6, Plt Count 329, MPV 7.3 L, Neut % (Auto) 75.1, Lymph % (Auto) 17.1, [place] % (Auto) 5.7, Eos % (Auto) 1.6, Baso % (Auto) 0.6, Neut # (Auto) 6.0, Lymph # (Auto) 1.4, [place] # (Auto) 0.5, Eos # (Auto) 0.1, Baso # (Auto) 0.1 05/01/21 11:50: Sodium 135 L, Potassium 3.7, Chloride 104, Carbon Dioxide 27, Anion Gap 7.7, BUN 12, Creatinine 0.80, Estimated Creat Clear 93, Estimated GFR 70, Est GFR ( Amer) 85, Glucose 102 H, Calcium 8.8, Total Bilirubin 1.2, AST 39 H, ALT 23, Alkaline Phosphatase 121, Troponin I < 0.01, Total Protein 7.2, Albumin 4.1, Globulin 3.1, Albumin/Globulin Ratio 1.3 05/01/21 11:50: PT 15.7 H, INR 1.43 H 05/01/21 11:50: NT-Pro-B Natriuret Pep 4020 H Result diagrams: 05/01/21 11:50 05/01/21 11:50 Orders (Tests/Meds): ED MEDICATIONS Generic Name Dose Route Start Last Admin Trade Name Freq PRN Reason Stop Dose Admin Sodium Chloride 10 ml 05/01/21 12:06 Sodium Chloride 0.9% 10ml Flush Syringe IV 05/31/21 12:05 NEEDED PRN Maintain IV Site Discontinued Medications Generic Name Dose Route Start Last Admin Trade Name Freq PRN Reason Stop Dose Admin Furosemide 40 mg 05/01/21 15:00 Furosemide 40mg/4ml Vial IV 05/01/21 15:01 ONCE ONE ORDERS Category Date Time Status Consult to Cardiology [CONS] Routine Cons 05/01/21 13:23 Active Covid-19 Nasal PCR ([facility]) Routine Lab 05/01/21 12:07 Received Troponin I Q3H Lab 05/01/21 15:15 Ordered Troponin I Q3H Lab 05/01/21 18:15 Ordered - Radiology Data #1 Image(s): Chest Image Reviewed: Yes I reviewed the patient's radiology image, Yes I have reviewed radiologist's interpretation Procedure(s): XR chest portable Accession Number(s): [id number] cc: Jerson Sullivan MD; Roberto Warner MD~ FINAL REPORT CLINICAL HISTORY: soa, CHEST PAIN, DEFIBRILLATOR RECENTLY PLACED. COMPARISON: April 25, 2021 FINDINGS: Two views of the chest were obtained. There is a left subclavian
[2021-05-01 13:22] LABS: INR 1.43 (0.9-1.1); Prothrombin Time 15.7 seconds (10.1-12.5)
[2021-05-01 13:30] LABS: NT Pro Brain Natriuretic Pep. 4020 pg/mL (0-125)
--- NOTE | 2021-05-01 14:56 | PC.NURSE ---
Dr. Easton and ZENOBIA Sanders at bedside
--- NOTE | 2021-05-01 15:11 | HMH.CNCARD ---
History of Present Illness Consult date: 05/01/21 Requesting physician: Javad Jiang Consult reason: shortness of breath Chief complaint: SOA History of present illness: This is a 71-year-old white female who presented to the emergency department complaints of shortness of breath. She is status post biventricular AICD placement approximately 6 days ago. She states since that time she has been short of breath. This has been progressively worsening. She states that she woke up around 330 this morning while on her BiPAP profoundly short of breath. She states that this is severe. She does report having chest pain for approximately 1 minute while she was short of breath and then that resolved. She has a chronic cough secondary to her asthma. She denies any fever or chills. She denies any nausea, vomiting, diarrhea. The patient states that she just has not really been able to do much of anything because she is so short of breath. [facility] History I have reviewed the patient's past medical history: Yes Medical History: Reports:: Asthma, Hypertension Denies:: Diabetes Mellitus Type 1, Diabetes Mellitus Type 2 *Have you ever received a pneumonia vaccine?: Yes *Have you received a flu vaccine this season?: Yes Other Medical History: Reports: Fibromyalgia Laterality Cases: Bilateral: Arthroscopy Knee, Arthroscopy Shoulder Other Surgeries: Yes: Cholecystectomy, Colonoscopy, Hysterectomy-Total Amputation: No Fractures: Yes - *Social History Smoking Status: Never smoker Alcohol Intake: never Substance Use Type: denies use *Occupational Status:: disabled Housing: house Household Members: spouse *Travel in the last 8 weeks: None Family Hx:: Non-contributory Meds Home Medications Medication Instructions Recorded Confirmed Type lactobacillus combo no.13 1 1 cap PO DAILY 12/06/20 04/25/21 History billion cell capsule,delayed release Duloxetine HCl [Cymbalta] 30 mg PO DAILY 02/14/21 04/25/21 History Famotidine [Acid Filter Press Tender Head] 20 mg PO TID 02/14/21 04/25/21 History buPROPion HCL [Bupropion HCl Sr] 200 mg PO DAILY 02/14/21 04/25/21 History carvedilol 25 mg tablet 25 mg PO BID #60 tab 02/26/21 04/25/21 Rx sacubitril 24 mg-valsartan 26 mg 1 tab PO BID tab 04/09/21 04/25/21 History tablet warfarin 5 mg tablet 5 mg PO COUMADIN tab 04/09/21 04/25/21 History Amitriptyline HCl [Elavil 25mg See Rx Instructions .ROUTE .COMPLEX 04/25/21 04/25/21 History tablet] Cholecalciferol (Vitamin D3) See Rx Instructions .ROUTE .COMPLEX 04/25/21 04/25/21 History [Vitamin D3 1,000 Unit Cap] Digoxin 125 mcg PO DAILY 04/25/21 04/25/21 History Enoxaparin Sodium [Lovenox 120 mg SQ Q12H 04/25/21 04/25/21 History 120mg/0.8mL syringe] Furosemide [Lasix 40mg tab] 40 mg PO DAILY #30 tab 05/01/21 Rx Spironolactone [Aldactone 25mg 25 mg PO DAILY #30 tab 05/01/21 Rx Tab] Allergies Allergy/AdvReac Type Severity Reaction Status Date / Time Sulfa (Sulfonamide Allergy Severe blisters Verified 04/25/21 08:48 Antibiotics) Exam Vital signs and Labs for Last 24 Hours: Temp Pulse Resp BP Pulse Ox 98.1 F 90 23 142/92 H 95 05/01/21 11:51 05/01/21 14:08 05/01/21 12:19 05/01/21 14:08 05/01/21 14:08 Laboratory Results - last 24 hr 05/01/21 11:50: WBC 7.9, RBC 4.24, Hgb 13.4, Hct 41.2, MCV 97.2, MCH 31.7 H, MCHC 32.7, RDW 14.6, Plt Count 329, MPV 7.3 L, Neut % (Auto) 75.1, Lymph % (Auto) 17.1, Jerome % (Auto) 5.7, Eos % (Auto) 1.6, Baso % (Auto) 0.6, Neut # (Auto) 6.0, Lymph # (Auto) 1.4, Jerome # (Auto) 0.5, Eos # (Auto) 0.1, Baso # (Auto) 0.1 05/01/21 11:50: Sodium 135 L, Potassium 3.7, Chloride 104, Carbon Dioxide 27, Anion Gap 7.7, BUN 12, Creatinine 0.80, Estimated Creat Clear 93, Estimated GFR 70, Est GFR ( Amer) 85, Glucose 102 H, Calcium 8.8, Total Bilirubin 1.2, AST 39 H, ALT 23, Alkaline Phosphatase 121, Troponin I < 0.01, Total Protein 7.2, Albumin 4.1, Globulin 3.1, Albumin/Globulin Ratio 1.3 05/01/21 11:50:
== END 2021-05-01 15:25 | disposition home or self-care (01) ==
PROVIDERS: Emergency Provider Emergency Medicine; PCP Emergency Medicine
DX: I50.23 Acute on chronic systolic (congestive) heart failure (principal); J45.909 Unspecified asthma, uncomplicated; I10 Essential (primary) hypertension; M79.7 Fibromyalgia; Z88.2 Allergy status to sulfonamides; Z79.899 Other long term (current) drug therapy
CPT/HCPCS: 71045; 80053; 83880; 84484; 85025; 85610; 93005; 96374; 99283; 99284; C9803; U0003; U0005

== ENCOUNTER 2021-05-07 10:58 | Outpatient (CLI) | payer MEDICARE, SELFPAY ==
[2021-05-07 11:29] LABS: PHA INR Fingerstick 2.3 (0.9-1.1)
[2021-05-07 13:51] LABS: Chloride 101 mmol/L (98-107); Sodium 135 mmol/L (136-145)
[2021-05-07 13:52] LABS: Potassium 3.7 mmoL/L (3.5-5.1)
[2021-05-07 13:54] LABS: Anion Gap 9.7 mEq/L (5-15); Blood Urea Nitrogen 12 mg/dl (7-17); Calcium 9.4 mg/dl (8.4-10.2); Carbon Dioxide 28 mmol/L (22.0-30.0); Estimated Glomerular Filt Rate 61 ml/min (>60); GFR (African American) 74 ML/MIN (>60); Glucose 111 mg/dl (74-100)
== END 2021-05-07 11:36 | disposition home or self-care (01) ==
LOC: ACC 10:59
PROVIDERS: Physician Assistant; PCP Emergency Medicine; Visit Provider Nurse Practitioner Family
DX: E66.01 Morbid (severe) obesity due to excess calories (principal); G47.33 Obstructive sleep apnea (adult) (pediatric); I10 Essential (primary) hypertension; I42.0 Dilated cardiomyopathy; I48.91 Unspecified atrial fibrillation; I51.3 Intracardiac thrombosis, not elsewhere classified; R09.89 Other specified symptoms and signs involving the circulatory and respiratory systems; Z68.41 Body mass index [BMI] 40.0-44.9, adult; Z95.810 Presence of automatic (implantable) cardiac defibrillator; Z51.81 Encounter for therapeutic drug level monitoring; Z79.01 Long term (current) use of anticoagulants
CPT/HCPCS: 36415; 80048; 85610; 99211; G0463

== ENCOUNTER → 2021-06-13 10:21 | Outpatient (CLI) | payer MEDICARE, SELFPAY ==
--- NOTE | 2021-06-13 10:26 | XR_ITS ---
FINAL REPORT CLINICAL HISTORY: recent AICD placement FINDINGS: TWO VIEWS OF THE CHEST The heart is normal in size. The mediastinum is unremarkable. Left subclavian ICD is present. The lungs are clear. There is no pneumothorax. IMPRESSION: No acute cardiopulmonary process. Reviewed, Interpreted and Dictated by Roberto Warner III, MD Transcribed by Rebeca Howard Authenticated by Roberto Warner III, MD on 06/13/2021 12:26:04 PM [facility]
== END ==
PROVIDERS: PCP Emergency Medicine; Visit Provider Nurse Practitioner Family
DX: I10 Essential (primary) hypertension (principal); I42.0 Dilated cardiomyopathy; I42.8 Other cardiomyopathies; I48.91 Unspecified atrial fibrillation; I51.3 Intracardiac thrombosis, not elsewhere classified; R09.89 Other specified symptoms and signs involving the circulatory and respiratory systems; R42 Dizziness and giddiness; Z95.810 Presence of automatic (implantable) cardiac defibrillator
CPT/HCPCS: 71046

== ENCOUNTER → 2021-06-29 12:15 | Outpatient (CLI) | payer MEDICARE, SELFPAY ==
[2021-06-29 14:18] LABS: Chloride 104 mmol/L (98-107); Potassium 4.3 mmoL/L (3.5-5.1); Sodium 140 mmol/L (136-145)
[2021-06-29 14:21] LABS: Blood Urea Nitrogen 13 mg/dl (7-17); Estimated Glomerular Filt Rate 70 ml/min (>60); GFR (African American) 85 ML/MIN (>60)
[2021-06-29 14:22] LABS: Anion Gap 10.3 mEq/L (5-15); Calcium 9.3 mg/dl (8.4-10.2); Carbon Dioxide 30 mmol/L (22.0-30.0); Glucose 100 mg/dl (74-100)
== END ==
PROVIDERS: Visit Provider Nurse Practitioner Family
DX: I42.0 Dilated cardiomyopathy (principal)
CPT/HCPCS: 36415; 80048

== ENCOUNTER 2021-07-25 11:25 | Outpatient (CLI) | payer MEDICARE, SELFPAY ==
[2021-07-25 15:13] LABS: PHA INR Fingerstick 3.4 (0.9-1.1)
== END 2021-07-25 15:16 | disposition home or self-care (01) ==
LOC: ACC 11:26
PROVIDERS: Nurse Practitioner Family; PCP Emergency Medicine; Visit Provider Nurse Practitioner Family
DX: Z51.81 Encounter for therapeutic drug level monitoring (principal); Z79.01 Long term (current) use of anticoagulants
CPT/HCPCS: 85610; 99211; G0463

== ENCOUNTER → 2022-01-04 12:43 | Outpatient (CLI) | payer MEDICARE, SELFPAY | PROVIDERS: PCP Emergency Medicine; Visit Provider Physician Assistant | DX: E66.01 Morbid (severe) obesity due to excess calories (principal); I10 Essential (primary) hypertension; I42.8 Other cardiomyopathies; I48.91 Unspecified atrial fibrillation; I50.9 Heart failure, unspecified; R09.89 Other specified symptoms and signs involving the circulatory and respiratory systems; Z68.41 Body mass index [BMI] 40.0-44.9, adult; Z95.810 Presence of automatic (implantable) cardiac defibrillator | CPT/HCPCS: 93306 ==

== ENCOUNTER → 2022-06-25 13:40 | Outpatient (CLI) | payer MEDICARE, SELFPAY ==
[2022-06-25 14:20] LABS: Basophils # 0.1 K/mm3 (0-0.2); Basophils % 0.8 % (0.1-2.0); Eosinophils # 0.3 K/mm3 (0.0-0.4); Eosinophils % 2.8 % (0.1-12.0); Hematocrit 45.1 % (37.0-47.0); Hemoglobin 14.5 g/dL (12.2-16.2); Lymphocytes # 2.7 K/mm3 (0.7-4.5); Lymphocytes % 26.9 % (10-50); Mean Corpuscular HGB Conc 32.2 g/dL (31.8-35.4); Mean Corpuscular Hemoglobin 31.8 pg (27.0-31.2); Mean Corpuscular Volume 98.5 fl (81-99); Mean Platelet Volume 7.7 fl (7.4-10.4); Monocytes # 0.5 K/mm3 (0.1-1.0); Monocytes % 4.6 % (1.7-9.3); Neutrophils # 6.4 K/mm3 (1.8-7.8); Platelet Count 411 K/mm3 (142-424); Red Blood Count 4.58 M/mm3 (4.20-5.40); Red Cell Distribution Width 13.5 % (11.5-17.5); White Blood Count 9.8 K/mm3 (4.8-10.8)
[2022-06-25 14:57] LABS: Alanine Aminotransferase 30 U/L (12-78); Albumin Level 4.2 g/dl (3.5-5.0); Alkaline Phosphatase 114 U/L (38-126); Anion Gap 8.2 mEq/L (5-15); Aspartate Amino Transferase 66 U/L (14-36); Bilirubin,Indirect 0.6 mg/dL (0.0-0.9); Bilirubin,Total 0.6 mg/dl (0.2-1.3); Bilirubin,Unconjugated 0.6 mg/dL (0.0-1.1); Blood Urea Nitrogen 12 mg/dl (7-17); Calcium 9.5 mg/dl (8.4-10.2); Carbon Dioxide 27 mmol/L (22.0-30.0); Chloride 105 mmol/L (98-107); Chol/HDL Ratio 4.6 (1-3.5); Cholesterol 189 mg/dl (140-200); Estimated Glomerular Filt Rate 54 ml/min (>60); GFR (African American) 66 ML/MIN (>60); Glucose 74 mg/dl (74-100); HDL Cholesterol 41 mg/dl (40-60); Potassium 4.2 mmoL/L (3.5-5.1); Sodium 136 mmol/L (136-145); Total Protein,Serum 6.9 g/dl (6.3-8.2); Triglycerides 177 mg/dl (30-150); VLDL Cholesterol 35 mg/dL (0-40)
[2022-06-25 15:13] LABS: Free T4 (Free Thyroxine) 0.97 ng/dl (0.78-2.19)
[2022-06-25 15:28] LABS: Thyroid Stimulating Hormone 1.78 uIU/mL (0.465-4.68)
== END ==
PROVIDERS: PCP Emergency Medicine; Visit Provider Nurse Practitioner
DX: E66.01 Morbid (severe) obesity due to excess calories (principal); I42.8 Other cardiomyopathies; I48.91 Unspecified atrial fibrillation; R06.02 Shortness of breath; R09.89 Other specified symptoms and signs involving the circulatory and respiratory systems; R42 Dizziness and giddiness; Z68.41 Body mass index [BMI] 40.0-44.9, adult; Z95.810 Presence of automatic (implantable) cardiac defibrillator; E11.9 Type 2 diabetes mellitus without complications
CPT/HCPCS: 36415; 80048; 80061; 80076; 84439; 84443; 85025

== ENCOUNTER → 2022-07-11 14:49 | Outpatient (CLI) | payer MEDICARE, SELFPAY ==
--- NOTE | 2022-07-11 14:49 | MM_ITS ---
PROCEDURE INFORMATION: Exam: MG Bilateral Screening 3D Mammography Exam date and time: 07/11/2022 2:39 PM Age: 72 years old Clinical indication: Screening mammogram TECHNIQUE: Imaging protocol: Bilateral Screening tomosynthesis and 2D mammography including computer-aided detection (CAD) when performed.Limited assessment due to difficulty positioning the patient Due to a left chest wall pacemaker COMPARISON: OT MM MAMMO DIGITAL DIAGNOSTIC LEFT 11/18/2012 11:44 AM FINDINGS: MAMMOGRAPHY: Breast composition: There are scattered areas of fibroglandular density. Mass: None. Architectural distortion: No new or suspicious architectural distortion. Calcifications: No new or suspicious calcifications are present Asymmetric density: No new or suspicious asymmetric density is present Skin thickening: None. Axillary adenopathy: None. IMPRESSION: No mammographic evidence of malignancy. Recommend annual screening mammography unless otherwise clinically indicated. ASSESSMENT: BI-RADS category 1: Negative
== END ==
PROVIDERS: PCP Emergency Medicine; Visit Provider Emergency Medicine
DX: Z12.31 Encounter for screening mammogram for malignant neoplasm of breast (principal)
CPT/HCPCS: 77063; 77067

== ENCOUNTER → 2023-01-15 14:36 | Outpatient (CLI) | payer MEDICARE, SELFPAY ==
--- NOTE | 2023-01-15 14:40 | CA_ITS ---
APPROVED REPORT EXAM: Comprehensive 2D, Doppler, and color-flow Echocardiogram Liability Analyst: Inés Falcon RVT Ht: 5 ft 7 in Wt: 256lbs BSA: 2.25 BP: 126/75 mmHg Indications: SOA,HX CM,A-FIB,AICD,CHF,OBESITY,HTN TDS-PT BODY HABITUS 2D Dimensions LVOT 2.09 cm (M/F) 1.5-2.5 LA Volume 49.00 mL LA Volume Index 21.78 mL/m2 (M/F) 16-34 M-Mode Dimensions RVDd 3.26 cm (0.9-2.6) LA Diam 3.74 cm (1.9-4.0) LVDd 4.88 cm (3.5-5.7) Ao Diam 3.16 cm (2.0-3.7) LVDs 3.42 cm (3.5-5.7) IVSd 1.69 cm (0.6-1.1) PWd 0.46 cm (0.6-1.1) EF (Teich) 56.90% FS 29.90% EDV (Teich) 111.70 mL TAPSE 1.82 (<1.7) ESV (Teich) 48.10 mL LV Diastology E Decel Time 290.00 (160-240 msec) E/A Ratio 0.7 MED E' 6.20 (< 7 cm/sec) E'/MED E' Ratio 10.73 (>14) LAT E' 6.70 (<10 cm/sec) E/LAT E' Ratio 9.93 (>14) Aortic Valve LVOT Max 128.00 (70-110 cm/s) LVOT VTI 24.32 cm AoV Peak Timo. 211.00 (50-130 cm/s) AO Peak GR. 17.70 mmHg AO Mean GR. 9.40 (<5 mmHg) AO VTI 41.44 (18-25 cm) DENA (VTI) 2.01 (2.5-4.5 cm2) Mitral Valve MV E Max Timo. 66.00 (40-130 cm/s) MV A Velocity 101.00 (40-130 cm/s) E/A Ratio 0.66 MV Decel. Time 290.00 (160-240 ms) MV PHT 85.00 ms Pulmonary Valve PV Peak Velocity 108.00 (50-150 cm/s) Tricuspid Valve TR P. Velocity 262.00 cm/s RAP Estimate 10.00 mmHg RVSP 37.60 mmHg Left Ventricle The left ventricle is normal size. The left ventricular systolic function is mildly reduced There is increased LV wall thickness. There is mild global hypokinesis is present. The base appears more hypokinetic related to the apex. Transmitral Doppler flow pattern suggests impaired LV relaxation. LVEF is 45%. Right Ventricle The right ventricle is normal size. The right ventricular systolic function is normal. A device lead is present in the right ventricle. Atria The left atrium size is normal. There is no Doppler evidence of interatrial shunt. Aortic Valve The aortic valve is mildly thickened. There is no aortic valvular stenosis. Mild aortic regurgitation. Mitral Valve The mitral valve leaflets are mildly thickened. No evidence of mitral valve stenosis. Trace mitral regurgitation. Tricuspid Valve Tricuspid valve leaflets are thin and pliable. Mild tricuspid regurgitation. RVSP is 30-35 mmHg. Pulmonic Valve The pulmonary valve is normal in structure. Mild pulmonic regurgitation. Great Vessels The aortic root is normal in size. The ascending aorta is normal in size. IVC is normal in size and collapses >50% with inspiration. Pericardium There is no pericardial effusion. Other Information Study Quality: Technically Difficult Conclusion Technically difficult study due to poor acoustic windows. Mild reduction in global LV systolic function (LVEF 45%). Increased LV wall thickness with basal hypokinesis relative to the apex. Mild TR. Elevated RVSP 30-35 mmHg. Compared to prior study from 2021, there are overall no significant changes. Due to presence of symptoms, increased LV wall thickness, and basal hypokinesis relative to the apex, consider evaluation for cardiac amyloidosis with lab testing, PYP nuclear scan, and cardiac MRI (amyloidosis protocol). Electronically signed by : Chantal Ray MD 01/17/2023 22:29:19
== END ==
PROVIDERS: PCP Emergency Medicine; Visit Provider Physician Assistant
DX: I42.8 Other cardiomyopathies (principal); I11.0 Hypertensive heart disease with heart failure; I50.9 Heart failure, unspecified; I48.91 Unspecified atrial fibrillation; R06.00 Dyspnea, unspecified; R42 Dizziness and giddiness; R09.89 Other specified symptoms and signs involving the circulatory and respiratory systems; Z95.810 Presence of automatic (implantable) cardiac defibrillator; E66.01 Morbid (severe) obesity due to excess calories; Z68.41 Body mass index [BMI] 40.0-44.9, adult
CPT/HCPCS: 93306

== ENCOUNTER → 2023-02-27 23:00 | Outpatient (CLI) | payer MEDICARE, SELFPAY ==
[2023-02-27 19:09] LABS: Basophils # 0.1 K/mm3 (0-0.2); Basophils % 0.7 % (0.1-2.0); Eosinophils # 0.2 K/mm3 (0.0-0.4); Eosinophils % 2.1 % (0.1-12.0); Hematocrit 44.6 % (37.0-47.0); Hemoglobin 15.1 g/dL (12.2-16.2); Lymphocytes # 2.7 K/mm3 (0.7-4.5); Lymphocytes % 29.4 % (10-50); Mean Corpuscular HGB Conc 33.7 g/dL (31.8-35.4); Mean Corpuscular Hemoglobin 33.9 pg (27.0-31.2); Mean Corpuscular Volume 100.5 fl (81-99); Mean Platelet Volume 8.6 fl (7.4-10.4); Monocytes # 0.4 K/mm3 (0.1-1.0); Monocytes % 4.8 % (1.7-9.3); Neutrophils # 5.7 K/mm3 (1.8-7.8); Platelet Count 431 K/mm3 (142-424); Red Blood Count 4.44 M/mm3 (4.20-5.40); Red Cell Distribution Width 13.6 % (11.5-17.5)
[2023-02-27 19:26] LABS: Alanine Aminotransferase 44 U/L (12-78); Albumin Level 4.4 g/dl (3.5-5.0); Albumin/Globulin Ratio 1.4 (1.1-1.8); Alkaline Phosphatase 130 U/L (38-126); Anion Gap 11.5 mEq/L (5-15); Aspartate Amino Transferase 76 U/L (14-36); Bilirubin,Total 0.8 mg/dl (0.2-1.3); Blood Urea Nitrogen 10 mg/dl (7-17); Calcium 9.7 mg/dl (8.4-10.2); Carbon Dioxide 28 mmol/L (22.0-30.0); Chloride 102 mmol/L (98-107); Estimated Glomerular Filt Rate 49 ml/min (>60); GFR (African American) 59 ML/MIN (>60); Globulin 3.1 g/dL (1.3-3.2); Glucose 108 mg/dl (74-100); Potassium 4.5 mmoL/L (3.5-5.1); Sodium 137 mmol/L (136-145); Total Protein,Serum 7.5 g/dl (6.3-8.2)
[2023-02-27 19:56] LABS: Thyroid Stimulating Hormone 1.11 uIU/mL (0.465-4.68)
[2023-02-27 20:01] LABS: Erythrocyte Sedimentation Rate 95 mm/hr (0-30)
[2023-02-27 20:15] LABS: Vitamin B12 259 pg/mL (239-931)
== END ==
PROVIDERS: PCP Internal Medicine; Visit Provider Internal Medicine
DX: Z00.00 Encounter for general adult medical examination without abnormal findings (principal); I50.9 Heart failure, unspecified; Z95.810 Presence of automatic (implantable) cardiac defibrillator
CPT/HCPCS: 80053; 82607; 84443; 85025; 85651

== ENCOUNTER 2023-11-27 14:35 | Outpatient (CLI) | payer MEDICARE, SELFPAY ==
[2023-11-27 18:59] LABS: Creatinine,Urine Random 31 mg/dL (Not Estab.)
[2023-11-27 19:27] LABS: Alanine Aminotransferase 47 U/L (12-78); Albumin/Globulin Ratio 1.2 (1.1-1.8); Alkaline Phosphatase 128 U/L (38-126); Anion Gap 12.5 mEq/L (5-15); Aspartate Amino Transferase 80 U/L (14-36); Bilirubin,Total 0.7 mg/dl (0.2-1.3); Blood Urea Nitrogen 17 mg/dl (7-17); Calcium 10.2 mg/dl (8.4-10.2); Carbon Dioxide 25 mmol/L (22.0-30.0); Chloride 105 mmol/L (98-107); Estimated Glomerular Filt Rate 61 ml/min (>60); GFR (African American) 74 ML/MIN (>60); Globulin 3.3 g/dL (1.3-3.2); Glucose 101 mg/dl (74-100); Potassium 4.5 mmoL/L (3.5-5.1); Sodium 138 mmol/L (136-145); Total Protein,Serum 7.3 g/dl (6.3-8.2)
[2023-11-27 19:31] LABS: Hemoglobin A1C 6.5 % (4.0-6.0); Microalbumin < 6.000 mg/L (0-16.7)
[2023-11-27 19:44] LABS: 25-OH Vitamin D, Total 39.7 ng/mL (30-100)
== END 2023-11-27 23:59 | disposition home or self-care (01) ==
LOC: LAB.DROPOF 11-28 15:01
PROVIDERS: PCP Internal Medicine; Visit Provider Internal Medicine
DX: E55.9 Vitamin D deficiency, unspecified (principal); Z13.1 Encounter for screening for diabetes mellitus; I10 Essential (primary) hypertension; R73.03 Prediabetes; Z79.899 Other long term (current) drug therapy
CPT/HCPCS: 80053; 82043; 82306; 82570; 83036

== ENCOUNTER 2024-01-23 13:33 | Outpatient (CLI) | payer MEDICARE, SELFPAY ==
--- NOTE | 2024-01-23 13:37 | CA_ITS ---
APPROVED REPORT EXAM: Comprehensive 2D, Doppler, and color-flow Echocardiogram Mechanical Cad Drafter: CONSUELO Krishna, RVS Ht: 5 ft 7 in Wt: 256lbs BSA: 2.25 BP: 133/77 mmHg Indications: Afib, CM, Dyspnea, AICD, HTN, HFrEF, 2D Dimensions Left Atrium 3.80 cm LA Volume 86.80 mL LA Volume Index 37.70 mL/m2 (M/F) 16-34 M-Mode Dimensions RVDd 3.22 cm (0.9-2.6) LA Diam 4.40 cm (1.9-4.0) LVDd 4.82 cm (3.5-5.7) LVDs 3.31 cm (3.5-5.7) IVSd 0.96 cm (0.6-1.1) PWd 1.13 cm (0.6-1.1) EF (Teich) 50.60% EPSs 0.65 cm FS 25.60% EDV (Teich) 90.10 mL TAPSE 1.35 (<1.7) ESV (Teich) 44.50 mL LV Diastology E Decel Time 173 (160-240 msec) E/A Ratio 3.66 MED A' 8.90 cm/s LAT A' 14.60 cm/s Aortic Valve DENA Index 1.13 cm2/m2 AoV Peak Timo. 148.0 (50-130 cm/s) AI PHT 438.00 ms AO Peak GR. 8.70 mmHg AO Mean GR. 4.30 (<5 mmHg) AO VTI 23.0 (18-25 cm) DENA (VTI) 2.61 (2.5-4.5 cm2) Mitral Valve MV A Velocity 28.0 (40-130 cm/s) E/A Ratio 3.66 Pulmonary Valve PV Peak Velocity 120.0 (50-150 cm/s) Tricuspid Valve TR P. Velocity 193.00 cm/s RAP Estimate 10.00 mmHg RVSP 24.90 mmHg Left Ventricle The left ventricle is normal size. The left ventricular systolic function is low normal. There is increased LV wall thickness. There is normal LV segmental wall motion. The left ventricular diastolic function is normal. LVEF is 50%. Right Ventricle Right ventricle is mildly dilated. The right ventricular systolic function is normal. There is a device lead in the right ventricle. Atria Left atrium is mildly dilated. The right atrium size is normal. There is no Doppler evidence of interatrial shunt. Aortic Valve The aortic valve is mildly thickened. There is no aortic valvular stenosis. Mild aortic regurgitation. Mitral Valve The mitral valve leaflets are mildly thickened. No evidence of mitral valve stenosis. Trace mitral regurgitation. Tricuspid Valve The tricuspid valve leaflets are thin and pliable. Trace tricuspid regurgitation. RVSP is normal. Pulmonic Valve The pulmonary valve is normal in structure. Trace pulmonic regurgitation. Great Vessels The aortic root is normal in size. The ascending aorta is not well-visualized. IVC is normal in size and collapses >50% with inspiration. The Pericardium There is no pericardial effusion. Other Information Study Quality: Fair Conclusion Low normal LV systolic function (LVEF 50%). Mild RV dilation with normal RV function. Mild LA dilation. Mild AI. Electronically signed by : Chantal Ray MD 01/26/2024 23:20:33
== END 2024-01-23 23:59 | disposition home or self-care (01) ==
LOC: RT 13:34
PROVIDERS: PCP Internal Medicine; Visit Provider Physician Assistant
DX: I51.7 Cardiomegaly (principal); I50.20 Unspecified systolic (congestive) heart failure
CPT/HCPCS: 93306

== ENCOUNTER 2024-02-24 15:23 | Outpatient (CLI) | payer MEDICARE, SELFPAY ==
[2024-02-24 19:26] LABS: Hemoglobin A1C 6.6 % (4.0-6.0)
[2024-02-24 20:04] LABS: Chol/HDL Ratio 3.7 (1-3.5); Cholesterol 184 mg/dl (140-200); HDL Cholesterol 50 mg/dl (40-60); Triglycerides 153 mg/dl (30-150); VLDL Cholesterol 31 mg/dL (0-40)
[2024-02-24 20:15] LABS: Direct LDL Cholesterol 118.67 mg/dL (100-129)
== END 2024-02-24 23:59 | disposition home or self-care (01) ==
LOC: LAB.DROPOF 02-25 10:41
PROVIDERS: PCP Internal Medicine; Visit Provider Internal Medicine
DX: E66.9 Obesity, unspecified (principal); Z13.1 Encounter for screening for diabetes mellitus
CPT/HCPCS: 80061; 83036

== ENCOUNTER 2024-05-25 14:22 | Outpatient (CLI) | payer MEDICARE, SELFPAY ==
[2024-05-25 19:49] LABS: Basophils # 0.1 K/mm3 (0-0.2); Basophils % 0.8 % (0.1-2.0); Eosinophils # 0.2 K/mm3 (0.0-0.4); Eosinophils % 2.3 % (0.1-12.0); Hematocrit 42.3 % (37.0-47.0); Hemoglobin 14.5 g/dL (12.2-16.2); Lymphocytes # 2.7 K/mm3 (0.7-4.5); Lymphocytes % 31.8 % (10-50); Mean Corpuscular HGB Conc 34.3 g/dL (31.8-35.4); Mean Corpuscular Hemoglobin 32.7 pg (27.0-31.2); Mean Corpuscular Volume 95.3 fl (81-99); Mean Platelet Volume 9.8 fl (7.4-10.4); Monocytes # 0.8 K/mm3 (0.1-1.0); Monocytes % 8.8 % (1.7-9.3); Neutrophils # 4.8 K/mm3 (1.8-7.8); Neutrophils % 55.8 % (37.0-80.0); Platelet Count 376 K/mm3 (142-424); Red Blood Count 4.44 M/mm3 (4.20-5.40); Red Cell Distribution Width 13.9 % (11.5-17.5); White Blood Count 8.6 K/mm3 (4.8-10.8)
[2024-05-25 21:25] LABS: Alanine Aminotransferase 46 U/L (12-78); Albumin Level 4.6 g/dl (3.5-5.0); Albumin/Globulin Ratio 1.6 (1.1-1.8); Alkaline Phosphatase 135 U/L (38-126); Anion Gap 15.3 mEq/L (5-15); Aspartate Amino Transferase 75 U/L (14-36); Bilirubin,Total 0.6 mg/dl (0.2-1.3); Blood Urea Nitrogen 17 mg/dl (7-17); Calcium 10.4 mg/dl (8.4-10.2); Carbon Dioxide 26 mmol/L (22.0-30.0); Chloride 102 mmol/L (98-107); Chol/HDL Ratio 4.1 (1-3.5); Cholesterol 195 mg/dl (140-200); Estimated Glomerular Filt Rate 70 ml/min (>60); GFR (African American) 84 ML/MIN (>60); Globulin 2.9 g/dL (1.3-3.2); Glucose 71 mg/dl (74-100); HDL Cholesterol 47 mg/dl (40-60); Magnesium 2.1 mg/dl (1.6-2.3); Potassium 5.3 mmoL/L (3.5-5.1); Sodium 138 mmol/L (136-145); Total Protein,Serum 7.5 g/dl (6.3-8.2); Triglycerides 175 mg/dl (30-150); VLDL Cholesterol 35 mg/dL (0-40)
[2024-05-25 21:38] LABS: Direct LDL Cholesterol 104.02 mg/dL (100-129)
[2024-05-25 21:46] LABS: 25-OH Vitamin D, Total 32.7 ng/mL (30-100)
[2024-05-25 22:18] LABS: Vitamin B12 246 pg/mL (239-931)
[2024-05-25 22:32] LABS: Hemoglobin A1C 6.6 % (4.0-6.0)
== END 2024-05-25 23:59 | disposition home or self-care (01) ==
LOC: LAB.DROPOF 05-26 13:19
PROVIDERS: PCP Internal Medicine; Visit Provider Internal Medicine
DX: E55.9 Vitamin D deficiency, unspecified (principal); I11.0 Hypertensive heart disease with heart failure; R06.02 Shortness of breath; I48.91 Unspecified atrial fibrillation; E66.01 Morbid (severe) obesity due to excess calories; Z68.41 Body mass index [BMI] 40.0-44.9, adult; I50.20 Unspecified systolic (congestive) heart failure; F32.9 Major depressive disorder, single episode, unspecified; E53.8 Deficiency of other specified B group vitamins
CPT/HCPCS: 80053; 80061; 82306; 82607; 83036; 83735; 85025

== ENCOUNTER 2024-10-18 17:06 | Outpatient (CLI) | payer MEDICARE, SELFPAY ==
[2024-10-18 20:03] LABS: Hemoglobin A1C 6.0 % (4.0-6.0)
[2024-10-18 20:21] LABS: Alanine Aminotransferase 28 U/L (12-78); Albumin Level 4.4 g/dl (3.5-5.0); Albumin/Globulin Ratio 1.7 (1.1-1.8); Alkaline Phosphatase 130 U/L (38-126); Anion Gap 11.1 mEq/L (5-15); Aspartate Amino Transferase 58 U/L (14-36); Bilirubin,Total 0.7 mg/dl (0.2-1.3); Blood Urea Nitrogen 12 mg/dl (7-17); Calcium 10.5 mg/dl (8.4-10.2); Carbon Dioxide 26 mmol/L (22.0-30.0); Chloride 104 mmol/L (98-107); Cholesterol 198 mg/dl (140-200); Creatinine,Serum 0.80 mg/dl (0.52-1.04); Estimated Glomerular Filt Rate 70 ml/min (>60); GFR (African American) 84 ML/MIN (>60); Globulin 2.6 g/dL (1.3-3.2); Glucose 103 mg/dl (74-100); HDL Cholesterol 39 mg/dl (40-60); Potassium 4.1 mmoL/L (3.5-5.1); Sodium 137 mmol/L (136-145); Total Protein,Serum 7.0 g/dl (6.3-8.2); Triglycerides 161 mg/dl (30-150)
--- OUTSIDE RECORDS SUMMARY | 2024-10-19 11:11 | XMS_ITS | Clinical Summary ---
Author Organization [facility] Address [address] [place] [address] Care Team Providers Care Environmental Quality Analyst Name Role Phone Spike Cueto MD Primary Care Provider [phone] Social History Tobacco Use Types Packs/Day Years Used Date Smoking Tobacco: Never Assessed Abuse Screen Answer Date Recorded Unsafe at Home or Work/School Not on file Feels Threatened by Someone? Not on file 02/2023 Does Anyone Keep You from Co ntacting Others or Doint Things Outside the Home? Not on file 12/26/2022 Physical Sign of Abuse Present Not on file 1 Housing Stability Answer Date Recorded Current Living Arrangements Not on file 12/15 Potentially Unsafe Housing Conditions Not on ludwin e 12/26/2022 Family and Community Support Answer Jacky e Recorded Help with Day-to-Day Activities Not on file 12/26/2022 Lonely or Isolated Not on file 12/26/2022 Employment Answer Date Recorded Do you want help finding or keeping work or a sarah b? Not on file 12/26/2022 Disabilities Answer Date Recorded Concentrating, Remembering, or Making Decisions Difficulty Not on file 12/26/2022 Doing Errands Independently Difficulty Not on fi le 12/26/2022 Education Answer Date Recorded Help with school or training? Not on file Preferred Language Not on file 12/26/2022 Comments Unknown Sex and Gender Information Value Date Recorded Sex Assigned at Not on file Legal Sex Female 3:47 PM EST Gender Identity Not on file Sexual Orientation Not on file Last Filed Vital Signs Vital Sign Reading Time Taken Comments Blood Pressure - - Pulse - - Temperature - - Respiratory Rate - - Oxygen Saturation - - Inhaled Oxygen Concentration - - Weight 130 kg (287 lb) 04/20/2019 3:57 PM EST Height 170 cm (5' 6.93 ) 04/20/2019 3:57 PM EST Body Mass Index 45.05 04/20/2019 3:57 PM EST Plan of Treatment Health Maintenance Due Date Last Done Comments ANNUAL PHYSICAL 1950 DXA SCAN 1950 HEPATITIS C SCREENING 1950 TDAP/TD VACCINES (1 - Tdap) 1967 Pneumococcal Vaccine 50+ (1 of 1 - PCV) 1998 RSV Vaccine - Adults (1 - 1- dose 75+ series) 2023 COVID-19 Vaccine (1 - 2023-25 season) 2023 INFLUENZA VACCINE 12/15/2024 ZOSTER VACCINE Completed 06/19/2018, 02/15, 11/02/2012 Insurance MEDICARE A & B Member Subscriber Plan / Payer (Ef fective 2013-Present) Name:Sindhu Mckinnon Member ID:[id number] Relation to Subscriber:Self Name:Sindhu Mckinnon Subscriber ID:[id number] Payer ID:[id number] Group ID:Not on file Type:Not on file Address: [id number] [employer] Care Teams Environmental Quality Analyst Relationship Specialty Start Date End Date Spike Cueto MD [address] [place] [address] PCP - General Family Medicine 04/08/19
--- OUTSIDE RECORDS SUMMARY | 2024-10-19 11:13 | XMS_ITS | Clinical Summary ---
Author Organization [facility] Address [address] [place] [address] Care Team Providers Care Clearing Supervisor Name Role Phone Unavailable Primary Care Provider Unavailabl e Social History Tobacco Use Types Packs/Day Years Used Date Smoking Tobacco: Never Assessed Comments Unknown Sex and Gender Information Value Date Recorded Sex Assigned at Not on file Legal Sex Female 1:58 PM EDT Gender Identity Not on file Sexual Orientation Not on file Plan of Treatment Health Maintenance Due Date Last Done Comments [facility]-Bone Density Scan 1950 [facility]Y-Depression Screening 1948 [facility]Y-Infant/Child/Adol SDOH Screenings 1948 UKY- SDOH Screenings 1966 [facility]Y-Adult SDOH Screenings 1966 [facility]Y-DTaP,Tdap,and Td Vaccines (1 - Tdap) 1967 UKY-RSV Vaccine: 60+ Years or (1 - 1-dose 75+ series) 2023 [id number] Vaccine ( - 2023- season) 2023 09/19/2021, 06/12/2020, 05/15/2020 UKY-Influenza Vaccine (#1) 11/15/202401/04, 12/22/2019 [facility]-Breast Cancer Screening Discontinued 11/13/2012 [facility]Y-Zoster Vaccines Completed 06/19/2018, 03/14/2018, 11/02/2012 UKY-Pneumococcal Vaccine: 50+ Years Completed 09/19/2021 HPV Vaccines Aged Out No longer eligi ble based on patient's age to complete this topic UKY-HIB Vaccines Aged Out No longer e ligible based on patient's age to complete this topic UKY-Hepatitis A Vaccines Aged Out No longer eligible based on patient's age to complete this topic UKY-IPV Vaccines Aged Out No longer e ligible based on patient's age to complete this topic UKY-Rotavirus Vaccines Aged Out No lo nger eligible based on patient's age to complete this topic Insurance [employer] MEDICARE
--- OUTSIDE RECORDS SUMMARY | 2024-10-19 11:13 | XMS_ITS | Clinical Summary ---
Author Organization [facility] Address [address] [place], [place] [address] Care Team Providers Care Raspberry Checker Name Role Phone Spike Cueto MD Primary Care Provider [phone] Allergies Active Allergy Reactions Criticality Noted Date Comments Sulfanilamide 12/20/2011 Medications metoprolol (LOPRESSOR) 50 MG tablet Take 50 mg by mouth daily. Active DULoxetine (CYMBALTA) 60 MG capsule Take 60 mg by mouth daily. Active losartan (COZAAR) 100 MG tablet Take 100 mg by mouth daily. Active amLODIPine (NORVASC) 10 mg tablet Take 10 mg by mouth daily. Active tiZANidine (ZANAFLEX) 4 MG tabletIndication s:Occipital neuralgia Take 1 tablet (4 mg total) by mouth daily. 90 tablet 3 08/11/2013 Active Active Problems Problem Noted Date Diagnosed Date Occipital neuralgia 08/11/2013 White matter abnormality on MRI of brain 014 Cervico-occipital neuralgia of the right side Abnormal MRI of head 08/11/2012 Vitamin D deficiency 08/11/2012 Family History Medical History Relation Comments Stroke Father Cancer, Other or Unknown Type Mother Relation Status Comments Father Mother Social History Tobacco Use Types Packs/Day Years Used Date Smoking Tobacco: Never Alcohol Use Standard Drinks/Week Comments No 0 (1 standard drink = 0.6 oz pur e alcohol) Comments Unknown Sex and Gender Information Value Date Recorded Sex Assigned at Not on file Legal Sex Female 4:46 PM EST Gender Identity Not on file Sexual Orientation Not on file Last Filed Vital Signs Vital Sign Reading Time Taken Comments Blood Pressure 124/72 08/11/2013 11:51 AM EDT Pulse 85 08/11/2013 11:51 AM EDT Temperature - - Respiratory Rate - - Oxygen Saturation 98% 08/11/2013 11: 51 AM EDT Inhaled Oxygen Concentration - - Weight 123.1 kg (271 lb 4.8 oz) 014 11:51 AM EDT Height 170.2 cm (5' 7 ) 08/11/2013 11:5 1 AM EDT Body Mass Index 42.49 08/11/2013 11:51 AM EDT Plan of Treatment Health Maintenance Due Date Last Done Comments Hepatitis C Screening 1950 Tdap/Td Vaccine >11 yo (1 - Tdap) 1967 Pneumococcal Vaccines >50 yo (1 of 1 - PCV) 1998 Shingles (Shingrix) (1 of 2) 1998 Osteoporosis Screening 2013 Annual SDOH Screening 03/17/2024 Influenza Vaccine (#1) 2024 Haemophilus Influenzae Type B (Hib) Vaccine Aged Out No longer eligible b ased on patient's age to complete this topic Hepatitis A (HepA) Vaccine Aged Out N o longer eligible based on patient's age to complete this topic Hepatitis B (HepB) Vaccine Aged Out N o longer eligible based on patient's age to complete this topic Meningococcal ACWY Aged Out No longer eligible based on patient's age to complete this topic Polio (IPV) Aged Out No longer eligi ble based on patient's age to complete this topic Rotavirus (RV) Vaccine Aged Out No lo nger eligible based on patient's age to complete this topic Insurance MEDICARE Care Teams Raspberry Checker Relationship Specialty Start Date End Date Spike Cueto MD [address] [place] [address] PCP - General Family Medicine 08/12/13
--- OUTSIDE RECORDS SUMMARY | 2024-10-19 12:11 | XMS_ITS | CCD ---
Author Organization Unknown Care Team Providers Care Children'S Nursery Assistant Name Role Phone Unavailable Primary Care Provider Unavailabl e Unavailable Chronic Care Management Unavaila ble Summary Purpose DataExchange Insurance Providers Payer name Policy type / Coverage type Covered alliance party ID Effective Begin Date Effective End Date [facility] [id number] Unknown Unknown Family History Family History data not found Medication Administered No Medication Administered data Reason For Visit No Reason For Visit data Medical Equipment No Medical Equipment data Advance Directives No Advance Directive data
== END 2024-10-18 23:59 | disposition home or self-care (01) ==
LOC: LAB.DROPOF 10-19 11:09
PROVIDERS: PCP Family Medicine; Visit Provider Family Medicine
DX: E11.69 Type 2 diabetes mellitus with other specified complication (principal); E66.9 Obesity, unspecified
CPT/HCPCS: 80053; 80061; 83036

== ENCOUNTER 2024-11-01 13:34 | Outpatient (CLI) | payer MEDICARE, SELFPAY ==
--- OUTSIDE RECORDS SUMMARY | 2024-11-01 13:37 | XMS_ITS | Clinical Summary ---
Author Organization [facility] Address [address] [place] [address] Care Team Providers Care Senior Chemical Engineer Name Role Phone Unavailable Primary Care Provider [...] UKY-Bone Density Scan 1948 [facility]Y-Depression Screening 1948 [facility]Y-/Child/Adol SDOH Screenings 1948 UKY- SDOH Screenings 1966 UKY-Adult SDOH Screenings 1966 UKY-DTaP,Tdap,and Td Vaccines (1 - Tdap) 1967 [facility]Y-RSV Vaccine: 60+ Years or (1 - 1-dose 75+ series) 2023 [id number] Vaccine ( - 2023- season) 2023 09/19/2021, [...]
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
--- OUTSIDE RECORDS SUMMARY | 2024-11-01 13:37 | XMS_ITS | Clinical Summary ---
Author Organization [facility] Address [address] [place] [address] Care Team Providers Care Director Of Accounts Receivable Name Role Phone Spike Cueto MD Primary Care Provider [phone] Social History Tobacco Use Types Packs/Day Years [...] Payer (Ef fective 2013-Present) Name:Sindhu Mckinnon Member ID:[id number] Relation to Subscriber:Self Name:Sindhu Mckinnon Subscriber ID:[id number] Payer ID:[id number] Group ID:Not on file Type:Not on file Address: [id number] [employer] Care Teams Director Of Accounts Receivable Relationship Specialty Start Date End Date Spike Cueto MD [address] [place] [address] PCP - General Family Medicine 04/08/19
--- OUTSIDE RECORDS SUMMARY | 2024-11-01 13:37 | XMS_ITS | Clinical Summary ---
Author Organization [facility] Address [address] [place], [place] [address] Care Team Providers Care Facility Maintenance Technician Name Role Phone Spike Cueto MD Primary Care Provider [phone] Allergies Active Allergy Reactions Criticality Noted Date [...] complete this topic Insurance MEDICARE Care Teams Facility Maintenance Technician Relationship Specialty Start Date End Date Spike Cueto MD [address] [place] [address] PCP - General Family Medicine 08/12/13
--- OUTSIDE RECORDS SUMMARY | 2024-11-01 14:37 | XMS_ITS | CCD ---
Author Organization Unknown Care Team Providers Care Product Operations Associate Name Role Phone Unavailable Primary Care Provider Unavailabl e Unavailable Chronic Care Management Unavaila ble Summary Purpose DataExchange Insurance Providers Payer name Policy type / Coverage type Covered democrat ID Effective Begin Date Effective End Date [facility] [id number] Unknown Unknown Family History Family History data not found Medication Administered No Medication Administered data Reason For Visit No Reason For Visit data Medical Equipment No Medical Equipment data Advance Directives No Advance Directive data
--- OUTSIDE RECORDS SUMMARY | 2024-11-01 14:37 | XMS_ITS | CCD ---
Author Organization Unknown Care Team Providers Care Correctional Therapy Director Name Role Phone Unavailable Primary Care Provider Unavailabl e Unavailable Chronic Care Management Unavaila ble Summary Purpose DataExchange Insurance Providers Payer name Policy type / Coverage type Covered alliance party ID Effective Begin Date Effective End Date [facility] [id number] Unknown Unknown Family History Family History data not found Medication Administered No Medication Administered data Reason For Visit No Reason For Visit data Medical Equipment No Medical Equipment data Advance Directives No Advance Directive data
--- NOTE | 2024-11-01 15:30 | MM_ITS ---
PROCEDURE INFORMATION: Exam: MG Bilateral Screening 3D Mammography Exam date and time: 11/01/2024 2:02 PM Age: 74 years old Clinical indication: Screening examination TECHNIQUE: Imaging protocol: Bilateral Screening tomosynthesis and 2D mammography including computer-aided detection (CAD) when performed. COMPARISON: 1. MG MM DIG SCREENING MAMM BI W/CAD 07/11/2022 2:39 PM 2. MG MM MAMMO DIGITAL DIAGNOSTIC LEFT 11/18/2012 11:44 AM FINDINGS: MAMMOGRAPHY: Breast composition: There are scattered areas of fibroglandular density. Mass: Adjacent low-density circumscribed oval masses measuring roughly 0.7 cm and 0.8 cm, respectively, in the upper-outer left breast at middle depth. Architectural distortion: None. Calcifications: No suspicious calcifications. Asymmetric density: None. Skin thickening: None. Axillary adenopathy: None. IMPRESSION: Subcentimeter left breast masses. Recommend further evaluation with left breast ultrasound. ASSESSMENT: BI-RADS Category 0: Incomplete- Need Additional Imaging Evaluation.
== END 2024-11-01 23:59 | disposition home or self-care (01) ==
LOC: RAD 13:34
PROVIDERS: PCP Family Medicine; Visit Provider Family Medicine
DX: Z12.31 Encounter for screening mammogram for malignant neoplasm of breast (principal); R92.323 Mammographic fibroglandular density, bilateral breasts
CPT/HCPCS: 77063; 77067

== ENCOUNTER 2024-11-26 14:58 | Outpatient (CLI) | payer MEDICARE, SELFPAY ==
--- OUTSIDE RECORDS SUMMARY | 2024-11-26 15:00 | XMS_ITS | Clinical Summary ---
Author Organization [facility] Address [address] [place] [address] Care Team Providers Care Real Estate Attorney Name Role Phone Spike Cueto MD Primary Care Provider [phone] Social History Tobacco Use Types Packs/Day Years [...] 2023 COVID-19 Vaccine (1 - 2023-25 season) 2024 INFLUENZA VACCINE 12/15/2024 ZOSTER VACCINE Completed 06/19/2018, 02/15, 11/02/2012 Insurance MEDICARE A & B Member Subscriber Plan / Payer (Ef fective 2013-Present) Name:Sindhu Mckinnon Member ID:[id number] Relation to Subscriber:Self Name:Sindhu Mckinnon Subscriber ID:[id number] Payer ID:[id number] Group ID:Not on file Type:Not on file Address: [id number] [employer] Care Teams Real Estate Attorney Relationship Specialty Start Date End Date Spike Cueto MD [address] [place] [address] PCP - General Family Medicine 04/08/19
--- OUTSIDE RECORDS SUMMARY | 2024-11-26 15:00 | XMS_ITS | Clinical Summary ---
Author Organization [facility] Address [address] [place] [address] Care Team Providers Care Rippler Name Role Phone Unavailable Primary Care Provider [...] or (1 - 1-dose 75+ series) 2023 [id number] Vaccine ( - 2023- season) 2023 09/19/2021, [...]
--- OUTSIDE RECORDS SUMMARY | 2024-11-26 15:00 | XMS_ITS | Clinical Summary ---
Author Organization [facility] Address [address] [place] [address] Phone Care Team Providers Care Procurement Specialist Name Role Phone RomSpike Venkat Primary Care [...] COVID-19 Vaccine (1 - 2023-2 5 season) 2024 Influenza Vaccine (#1) 2024 Hepatitis B Vaccine Aged Out No longe r eligible based on patient's age to complete this topic Meningococcal B Vaccine Aged Out No l onger eligible based on patient's age to complete this topic Insurance MEDICARE [place] [address] [place] [address] SUPPLEMENTAL ATTN: REZA COON [address] [facility] [place] [address] Care Teams Procurement Specialist Relationship Specialty Start Date End Date Spike Cueto [address] [place] [address] PCP - General 07/28/12
--- OUTSIDE RECORDS SUMMARY | 2024-11-26 15:00 | XMS_ITS | Clinical Summary ---
Author Organization Located Within [facility] Address [address] [place], [place] [id number] Care Team Providers Care Surveyor Helper Rod Name Role Phone Spike Cueto MD Primary Care Provider [phone] Allergies Active Allergy Reactions Criticality Noted Date [...] (1 of 2) 1998 Osteoporosis Screening 2013 RSV 50+ and (1 - 1 -dose 75+ series) 2023 Annual SDOH Screening 03/17/2024 Influenza Vaccine (#1) [...] complete this topic Insurance MEDICARE Care Teams Surveyor Helper Rod Relationship Specialty Start Date End Date Spike Cueto MD [address] [place] [address] PCP - General Family Medicine 08/12/13
--- NOTE | 2024-11-26 15:30 | US_ITS ---
PROCEDURE INFORMATION: Exam: US Left Breast, Complete Exam date and time: 11/26/2024 3:15 PM Age: 74 years old Clinical indication: Patient recalled for further evaluation of left breast masses TECHNIQUE: Imaging protocol: Complete ultrasound of all four quadrants of the left breast and the retroareolar regions, including ultrasound of the axilla when performed. COMPARISON: MG MM DIG SCREENING MAMM BI W/CAD 11/01/2024 2:02 PM FINDINGS: ULTRASOUND: Breast ultrasound findings: Sonographic images of the left breast including the retroareolar region, all 4 quadrants and the axilla do not demonstrate any solid masses. A cluster of cysts with a combined dimension of 1.6 cm in the 2 o'clock axis 9 cm from the nipple. This most closely corresponds to the adjacent masses on mammography. There is an adjacent 0.8 cm cyst. No architectural distortion or acoustical shadowing. No skin thickening or axillary adenopathy. IMPRESSION: Masses on screening mammography correspond to underlying cystic change sonographically. There is no mammographic evidence of malignancy.Annual bilateral mammographic screening is recommended unless otherwise clinically indicated. ASSESSMENT: BI-RADS Category 2: Benign.
--- OUTSIDE RECORDS SUMMARY | 2024-11-26 16:00 | XMS_ITS | CCD ---
Author Organization Unknown Care Team Providers Care Volleyball Coach Name Role Phone Unavailable Primary Care Provider Unavailabl e Unavailable Chronic Care Management Unavaila ble Summary Purpose DataExchange Insurance Providers Payer name Policy type / Coverage type Covered libertarian ID Effective Begin Date Effective End Date [facility] [id number] Unknown Unknown Family History Family History data not found Medication Administered No Medication Administered data Reason For Visit No Reason For Visit data Medical Equipment No Medical Equipment data Advance Directives No Advance Directive data
--- OUTSIDE RECORDS SUMMARY | 2024-11-26 16:00 | XMS_ITS | CCD ---
Author Organization Unknown Care Team Providers Care Visual Associate Name Role Phone Unavailable Primary Care Provider Unavailabl e Unavailable Chronic Care Management Unavaila ble Summary Purpose DataExchange Insurance Providers Payer name Policy type / Coverage type Covered democrat ID Effective Begin Date Effective End Date [facility] [id number] Unknown Unknown Family History Family History data not found Medication Administered No Medication Administered data Reason For Visit No Reason For Visit data Medical Equipment No Medical Equipment data Advance Directives No Advance Directive data
== END 2024-11-26 23:59 | disposition home or self-care (01) ==
LOC: RAD 14:58
PROVIDERS: PCP Family Medicine; Visit Provider Family Medicine
DX: N60.12 Diffuse cystic mastopathy of left breast (principal)
CPT/HCPCS: 76641

== ENCOUNTER 2025-01-27 09:34 | Outpatient (CLI) | payer MEDICARE, SELFPAY ==
[2025-01-27 20:12] LABS: Hematocrit 42.6 % (37.0-47.0); Hemoglobin 14.0 g/dL (12.2-16.2); Immature Granulocytes % 0.3 %; Mean Corpuscular HGB Conc 32.9 g/dL (31.8-35.4); Mean Corpuscular Hemoglobin 32.1 pg (27.0-31.2); Mean Corpuscular Volume 97.7 fl (81-99); Nucleated Red Blood Cells % 0 %; Platelet Count 299 K/mm3 (142-424); Red Blood Count 4.36 M/mm3 (4.20-5.40); Red Cell Distribution Width-SD 47.9 fL; White Blood Count 9.3 K/mm3 (4.8-10.8)
[2025-01-27 20:44] LABS: Alanine Aminotransferase 28 U/L (12-78); Albumin Level 4.5 g/dl (3.5-5.0); Albumin/Globulin Ratio 1.5 (1.1-1.8); Alkaline Phosphatase 149 U/L (38-126); Anion Gap 12.6 mEq/L (5-15); Aspartate Amino Transferase 73 U/L (14-36); Bilirubin,Total 0.6 mg/dl (0.2-1.3); Blood Urea Nitrogen 18 mg/dl (7-17); Calcium 10.4 mg/dl (8.4-10.2); Carbon Dioxide 25 mmol/L (22.0-30.0); Chloride 100 mmol/L (98-107); Cholesterol 195 mg/dl (140-200); Creatinine,Serum 0.90 mg/dl (0.52-1.04); Estimated Glomerular Filt Rate 61 ml/min (>60); GFR (African American) 74 ML/MIN (>60); Globulin 3.1 g/dL (1.3-3.2); Glucose 99 mg/dl (74-100); HDL Cholesterol 42 mg/dl (40-60); Potassium 4.6 mmoL/L (3.5-5.1); Sodium 133 mmol/L (136-145); Total Protein,Serum 7.6 g/dl (6.3-8.2); Triglycerides 156 mg/dl (30-150)
[2025-01-27 20:52] LABS: Hemoglobin A1C 6.6 % (4.0-6.0)
[2025-01-27 21:02] LABS: Free T4 (Free Thyroxine) 1.13 ng/dl (0.78-2.19)
[2025-01-27 21:12] LABS: Thyroid Stimulating Hormone 1.91 uIU/mL (0.465-4.68)
== END 2025-01-27 23:59 ==
LOC: LAB.DROPOF 01-31 09:34
PROVIDERS: PCP Family Medicine; Visit Provider Family Medicine
DX: E11.69 Type 2 diabetes mellitus with other specified complication (principal); E66.9 Obesity, unspecified; R61 Generalized hyperhidrosis
CPT/HCPCS: 80053; 80061; 83036; 84439; 84443; 85025